=== PATIENT | female | born 1945 | race Caucasian/White ===

== ENCOUNTER 2018-07-29 10:27 | Inpatient (IN) ==
--- NOTE | 2018-07-29 11:56 | Emergency Department Note ---
Disposition Clinical Impression: Chest pain Qualifiers: Chest pain type: unspecified Qualified Code(s): R07.9 - Chest pain, unspecified Disposition: Admitted As Inpatient Condition: Fair Referrals: Lisa Emmanuel CNP [Primary Care Provider] - Forms: ED Satisfaction Letter, Work/School Release General Adult HPI - General Chief complaint: ED Abdominal Pain Stated complaint: pain from surgery Time Seen by Provider: 07/29/18 10:59 Source: patient, family Mode of arrival: ambulatory Limitations: no limitations Nursing Notes Reviewed: Yes Vital Signs Reviewed: Yes - History of Present Illness HPI Narrative: Pt is a 72 F that had AAA open repair with bypass on 06/28/18 with ten day SNF stay afterward for rehab and PMH of DM, COPD, HTN that presents today with complaints of chest pain, leg pain, leg weakness, abdominal pain, dry cough. Her main concern today is the chest pain that started three days ago and felt like pressure, lasted about thirty minutes, was accompanied by nausea, and went away on its own. She has a home health aide that sees her and recommended that she come in to be evaluated today. She endorses feeling hot and cold at times, urinary frequency, shortness of breath, anorexia, left leg pain/swelling. She denies nausea not associated with chest pain, vomiting, diarrhea, headache, changes in vision, hemoptysis. Onset (ago): day(s) Location: chest, abdomen, left, lower extremity Radiation: non-radiation Pain Scale: 6 Quality: dull, other (pressure) - Related Data Home Medications Medication Instructions Recorded Confirmed Aspirin [Lo-Dose Aspirin EC] 81 mg PO DAILY 04/29/17 07/29/18 Celecoxib [Celebrex] 200 mg PO DAILY 04/29/17 07/29/18 Insulin ASPART [Novolog Flexpen] 4 unit SQ TIDWM 04/29/17 07/29/18 Ipratropium/Albuterol Sulfate 1 puff IH QID 04/29/17 07/29/18 [Combivent Respimat Inhal [place]] Levalbuterol [Xopenex INH] 1 puff IH TID PRN 04/29/17 07/29/18 Lidocaine Patch [Lidoderm 5% patch] 1 each TP DAILY 04/29/17 07/29/18 Metoprolol Tartrate [Lopressor] 25 mg PO BID 04/29/17 07/29/18 [place]-3S/Dha/Epa/Fish Oil [Fish 1 each PO DAILY 04/29/17 07/29/18 Oil [place]-3 Softgel] Omeprazole [PriLOSEC] 40 mg PO BID 04/29/17 07/29/18 Rotigotine [Neupro] 1 patch TD DAILY 04/29/17 07/29/18 Trazodone HCl 50 mg PO HS 04/29/17 07/29/18 diazePAM [Valium] 10 mg PO BID 04/29/17 07/29/18 Atorvastatin [Lipitor] 40 mg PO HS 03/24/18 07/29/18 Fluticasone/Salmeterol [Advair 1 each IH DAILY 03/24/18 07/29/18 500-50 Diskus] Lisinopril [Zestril] 10 mg PO DAILY 03/24/18 07/29/18 Naproxen Sodium [All Day Pain 220 mg PO TID PRN 03/24/18 07/29/18 Relief] Amoxicillin [Amoxil] 500 mg PO TID 07/29/18 07/29/18 HYDROcodone/Acet 5/325 mg [[place] 1 tab PO DAILY PRN 07/29/18 07/29/18 5-325 mg] Labetalol HCl 200 mg PO DAILY 07/29/18 07/29/18 Previous Rx's Medication Instructions Recorded Clopidogrel [Plavix] 75 mg PO DAILY #30 tablet 04/30/17 Allergies Allergy/AdvReac Type Severity Reaction Status Date / Time albuterol AdvReac Chest Pain Verified 07/29/18 10:42 ciprofloxacin [From Cipro] AdvReac Vomiting Verified 07/29/18 10:42 doxycycline AdvReac Nausea Verified 07/29/18 10:42 pregabalin [From Lyrica] AdvReac Fatigued Verified 07/29/18 10:42 All systems ED: reviewed and negative except as stated. Review of Systems: As Per HPI Past Medical History - Past Medical History Medical history: Reports: COPD, coronary artery disease, diabetes, fibromyalgia , hyperlipidemia, hypertension Surgical history: Reports: angioplasty/stent, coronary bypass (CABG) Psychiatric history: Reports: anxiety DANCING MASTER history: Reports: no DANCING MASTER history - Social History Smoking Status: Current every day smoker Smokeless Tobacco Status: No Alcohol use: Reports: occasionally Drug use: Reports: none Physical Exam - General Limitations: no limitations General appearance: alert, in no apparent distress - Head Head exam: atraumatic - Eye Eye exam: Present: normal appearance, miosis - ENT ENT exam: mucous membranes dry - Chest Chest inspection: Present: normal inspection, symmetric chest wall rise. Absent : tenderness, rash - Respiratory Respiratory exam: Present: other (course breath sounds EUGENE, rales in LLL). Absent: wheezes - Cardiovascular Cardiovascular exam: Present: regular rate, normal rhythm, systolic murmur - Abdominal Exam Abdominal exam: Present: soft, tenderness, normal bowel sounds, incision ( midline incision without erythema, drainage. Closed with steri-strips above umbilicus, surgical cullen below the umbilicus, with incomplete closure in suprapubic area). Absent: distention, guarding, rigidity - Expanded Lower Extremity Exam Lower leg exam: Present: tenderness (left leg), swelling (left leg), erythema ( left leg) - Back Exam Back exam: Present: normal inspection. Absent: tenderness, rashes - Neurological Exam Neurological exam: Present: alert, oriented X3 - Psychiatric Psychiatric exam: Present: normal affect, normal mood - Skin Skin exam: Present: warm, dry, intact. Absent: rash, cyanosis, diaphoresis Course Course Narrative: Pt had an episode of chest pain three days ago that lasted approximately 30m and was not brought on by exertion. She has multiple risk factors for ACS, recent surgery for AAA repair without resolution of pain, and continued concern for left lower leg DVT. She will likely need to be admitted for ACS r/o. Vital Signs Temperature 97.9 F 07/29/18 10:34 Pulse Rate 63 07/29/18 10:34 Respiratory Rate 20 07/29/18 10:34 Blood Pressure 167/89 07/29/18 10:34 O2 Sat by Pulse Oximetry 92 07/29/18 10:34 Temperature 97.9 F 07/29/18 14:00 Pulse Rate 66 07/29/18 14:00 Respiratory Rate 17 07/29/18 14:00 Blood Pressure 173/60 07/29/18 14:00 O2 Sat by Pulse Oximetry 96 07/29/18 14:00 Oxygen Delivery Oxygen Delivery Room Air Medical Decision Making - Medical Records Medical records reviewed: Yes I reviewed the patient's medical records. - Lab Data Lab results reviewed: Yes I reviewed the patient's lab results. Result diagrams: 07/29/18 11:41 07/29/18 11:41 Lab Results 07/29/18 07/29/18 07/29/18 Range/Units 11:41 11:41 11:41 WBC 4.9 (4.3-11.1) K/mcL RBC 3.28 L (3.82-4.97) M/mcL Hgb 8.7 L (11.5-15.4) g/dL Hct 28.3 L (35.3-44.9) % MCV 86.3 (83.0-100.0) fL MCH 26.5 L (28.0-33.3) pg MCHC 30.7 L (31.6-35.5) g/dL RDW 15.6 H (11.5-14.5) % Plt Count 207 (140-400) K/mcL MPV 8.5 L (9.4-12.4) fL Immature Gran % 0.4 (0-4) % Seg Neutrophils % 66.5 % Lymphocytes % 20.7 % Monocytes % 7.1 % Eosinophils % 5.3 % Basophils % 0.0 % Neutrophils # 3.3 (1.6-8.9) K/mcL Lymphocytes # 1.0 (0.6-4.6) K/mcL Monocytes # 0.4 (0.0-1.3) K/mcL Eosinophils # 0.3 (0.0-0.6) K/mcL Basophils # 0.0 (0.0-0.2) K/mcL PT 13.0 H (9.4-12.1) Seconds INR 1.2 D-Dimer 1685 H (0-500) ng/mLFEU Sodium 136 (136-145) mEq/L Potassium 4.2 (3.5-5.1) mEq/L Chloride 99 (98-107) mEq/L Carbon Dioxide 29 (23-29) mEq/L BUN 10 (8-23) mg/dL Creatinine 0.72 (0.60-1.20) mg/dL Est GFR ( Amer) > 60 (> 60) Est GFR (Non-Af Amer) > 60 (> 60) BUN/Creatinine Ratio 14 (6-26) Glucose 290 H (70-105) mg/dL Calculated Osmolality 292 (280-300) Calcium 8.5 L (8.6-10.3) mg/dL Troponin I 0.04 H* (< 0.04) ng/mL B-Natriuretic Peptide (Less than 100) pg/mL Stool Occult Bld Scrn (Negative) 07/29/18 07/29/18 Range/Units 11:41 15:04 WBC (4.3-11.1) K/mcL RBC (3.82-4.97) M/mcL Hgb (11.5-15.4) g/dL Hct (35.3-44.9) % MCV (83.0-100.0) fL MCH (28.0-33.3) pg MCHC (31.6-35.5) g/dL RDW (11.5-14.5) % Plt Count (140-400) K/mcL MPV (9.4-12.4) fL Immature Gran % (0-4) % Seg Neutrophils % % Lymphocytes % % Monocytes % % Eosinophils % % Basophils % % Neutrophils # (1.6-8.9) K/mcL Lymphocytes # (0.6-4.6) K/mcL Monocytes # (0.0-1.3) K/mcL Eosinophils # (0.0-0.6) K/mcL Basophils # (0.0-0.2) K/mcL PT (9.4-12.1) Seconds INR D-Dimer (0-500) ng/mLFEU Sodium (136-145) mEq/L Potassium (3.5-5.1) mEq/L Chloride (98-107) mEq/L Carbon Dioxide (23-29) mEq/L BUN (8-23) mg/dL Creatinine (0.60-1.20) mg/dL Est GFR ( Amer) (> 60) Est GFR (Non-Af Amer) (> 60) BUN/Creatinine Ratio (6-26) Glucose (70-105) mg/dL Calculated Osmolality (280-300) Calcium (8.6-10.3) mg/dL Troponin I (< 0.04) ng/mL B-Natriuretic Peptide 618 H (Less than 100) pg/mL Stool Occult Bld Scrn Negative (Negative) - Radiology Data Radiology results reviewed: Yes I reviewed the patient's radiology results. - EKG Data EKG #1 EKG attestation: Yes I reviewed and interpreted this EKG. EKG results narrative: Vent Rate 63, Rhythm is sinus, axis is normal. No evidence of ST elevation or depression, no evidence of ischemia. Attestation Statement - Attestation Attestation: I, Kit Thompson, examined this patient and my medical decision-making was reviewed with the MARRIAGE THERAPIST/PA/Advanced Practice Nurse/Resident Physician. I agree with the documented findings, disposition and treatment plan as described except to the extent set forth below. 72-year-old female presents emergency Department with multiple complaints. Patient states her main concern was acute onset of chest pain within the past 2 days that came on quickly, was associated with shortness of breath and nausea. She did not syncopized. Patient was counseled to present to the emergency department for further evaluation by [facility] health aide. Patient had recent AAA repair and has a large incision on her anterior abdomen. She has had persistent abdominal pain since that time. Patient states the abdominal pain has not significantly worsened within the past 2-3 days however the pain is described as severe. Patient has also had left lower extremity swelling which had a left lower extremity Doppler performed 2 weeks ago that did not show left lower extremity DVT however she has had increased swelling of left lower extremity since that ultrasound. Repeat ultrasound emergency department did not show evidence of DVT. D-dimer was elevated. Patient had elevated troponin of 0.04. Hemoglobin was significantly decreased compared to her previous laboratory values. We will obtain rectal exam for possible occult blood in stool. BNP elevated with vascular congestion on chest x-ray.CTA pending of the chest to rule out PE, we also added CT of the abdomen and pelvis to further evaluate her abdominal pain after the surgery. Patient will likely be admitted to the hospital however disposition is pending at this time.
[2018-07-29 12:01] LABS: Eosinophils # 0.3 K/mcL (0.0-0.6); Eosinophils % 5.3 %; Hematocrit 28.3 % (35.3-44.9); Hemoglobin 8.7 g/dL (11.5-15.4); Immature Granulocytes % 0.4 % (0-4); Lymphocytes % 20.7 %; Mean Corpuscular HGB Conc 30.7 g/dL (31.6-35.5); Mean Corpuscular Hemoglobin 26.5 pg (28.0-33.3); Mean Corpuscular Volume 86.3 fL (83.0-100.0); Mean Platelet Volume 8.5 fL (9.4-12.4); Monocytes # 0.4 K/mcL (0.0-1.3); Monocytes % 7.1 %; Neutrophils # 3.3 K/mcL (1.6-8.9); Platelet Count 207 K/mcL (140-400); Red Blood Count 3.28 M/mcL (3.82-4.97); Red Cell Distribution Width 15.6 % (11.5-14.5); Segmented Neutrophils % 66.5 %
[2018-07-29 12:07] LABS: INR 1.2
[2018-07-29 12:21] LABS: Troponin I 0.04 ng/mL (< 0.04)
[2018-07-29] MEDS ORDERED: Isovue-370 500 ML INFUS..BTL IV ONE (12:45)
[2018-07-29 12:52] LABS: BUN/Creatinine Ratio 14 (6-26); Blood Urea Nitrogen 10 mg/dL (8-23); Calcium 8.5 mg/dL (8.6-10.3); Carbon Dioxide 29 mEq/L (23-29); Chloride 99 mEq/L (98-107); Glucose 290 mg/dL (70-105); Osmolality,Calculated 292 (280-300); Potassium 4.2 mEq/L (3.5-5.1); Sodium 136 mEq/L (136-145); eGFR For Non-African Americans > 60 (> 60)
[2018-07-29] MEDS ORDERED: *HR* OxyCODONE Immed Rel 5 MG TABLET PO ONE (15:26)
[2018-07-29] MEDS ORDERED: Levalbuterol 1 PUFF INHALER IH PRN (15:52)
[2018-07-29] MEDS ORDERED: Naloxone 0.4 MG/ML INJ IVP PRN (16:25)
[2018-07-29] MEDS ORDERED: Ondansetron 4 MG/2 ML VIAL IVP PRN (16:37)
[2018-07-29] MEDS ORDERED: Nitroglycerin 0.4 MG TAB.SUBL SL PRN (16:37)
[2018-07-29] MEDS ORDERED: Albuterol 2.5 MG/3 ML NEBULIZER IH PRN (16:44)
[2018-07-29] MEDS ORDERED: Ipratropium/Albuterol Neb 3 ML IH ONE (16:46)
[2018-07-29] MEDS ORDERED: Ipratropium/Albuterol Neb 3 ML ONE (16:52)
--- NOTE | 2018-07-29 16:57 | Internal Med History&Physical ---
Date of Encounter: 07/29/18 Time of Encounter: 16:50 Internal Medicine - H&P: HPI History of present illness: Ms. Gonzales is a 72 year old female with history of diastolic heart failure, CAD status-post CABG, recent AAA repair on 06/28/18 presented for a 3 day history of chest pain and abdominal pain. She was encouraged to come in by her home health aid. Patient accompanied with daughter. Per patient, chest pain is dull , substernal, and abdominal pain is described as sharp. She believes the abdominal pain is easily reproduced if she palpates it. Chest pain can last 30 min at a time and has subsided. She is having increasing shortness of breath and also increased swelling of her left lower extremity. She feels increased heezing as well. She denies fevers/chills, productive cough, diaphoresis, headaches. In the ED a chest x-ray showed vascular congestion. A CTA of chest showed multi -focal pneumonia and pleural effusion. A CTA abdomen and pelvis showed patient iliac artery bypass grafts, inguinal seromas. A BNP was elevated at 618. Patient's recent AAA surgery was at an outside hospital. She had a borderline elevated troponin of 0.04. A hemoglobin was low at 8.7. At our facility on 01/19, hemoglobin was 13.6 as a baseline. A FOBT was negative in ED. Outside records are pending. Past Med Surg Social Fam HX - Past Medical History Medical history: COPD, coronary artery disease, diabetes, fibromyalgia, hyperlipidemia, hypertension Additional medical history: thyroid mass, carotid disease, multiple stents Psychiatric history: anxiety - Past Surgical History Surgical History: angioplasty/stent, coronary bypass (CABG) - Social History Smoking Status: Current every day smoker Smokeless Tobacco Status: No Alcohol use: occasionally Drug use: none - Family History Father Family Member Ethnicity: Non- Living Status: Hx Family Cardiac Disorders: Yes Internal Medicine - H&P: Meds Aspirin [Lo-Dose Aspirin EC] 81 mg PO DAILY 04/29/17 [History] Celecoxib [Celebrex] 200 mg PO DAILY 04/29/17 [History] Insulin ASPART [Novolog Flexpen] 4 unit SQ TIDWM 04/29/17 [History] Ipratropium/Albuterol Sulfate [Combivent Respimat Inhal [place]] 1 puff IH QID [History] Levalbuterol [Xopenex INH] 1 puff IH TID PRN 04/29/17 [History] Lidocaine Patch [Lidoderm 5% patch] 1 each TP DAILY 04/29/17 [History] Metoprolol Tartrate [Lopressor] 25 mg PO BID 04/29/17 [History] [place]-3S/Dha/Epa/Fish Oil [Fish Oil [place]-3 Softgel] 1 each PO DAILY 04/29/17 [ History] Omeprazole [PriLOSEC] 40 mg PO BID 04/29/17 [History] Rotigotine [Neupro] 1 patch TD DAILY 04/29/17 [History] Trazodone HCl 50 mg PO HS 04/29/17 [History] diazePAM [Valium] 10 mg PO BID 04/29/17 [History] Clopidogrel [Plavix] 75 mg PO DAILY #30 tablet 04/30/17 [Rx] Atorvastatin [Lipitor] 40 mg PO HS 03/24/18 [History] Fluticasone/Salmeterol [Advair 500-50 Diskus] 1 each IH DAILY 03/24/18 [History] Lisinopril [Zestril] 10 mg PO DAILY 03/24/18 [History] Naproxen Sodium [All Day Pain Relief] 220 mg PO TID PRN 03/24/18 [History] Amoxicillin [Amoxil] 500 mg PO TID 07/29/18 [History] HYDROcodone/Acet 5/325 mg [[place] 5-325 mg] 1 tab PO DAILY PRN 07/29/18 [History] Labetalol HCl 200 mg PO DAILY 07/29/18 [History] 3 Allergy/AdvReac Type Severity Reaction Status Date / Time albuterol AdvReac Chest Pain Verified 07/29/18 10:42 ciprofloxacin [From Cipro] AdvReac Vomiting Verified 07/29/18 10:42 doxycycline AdvReac Nausea Verified 07/29/18 10:42 pregabalin [From Lyrica] AdvReac Fatigued Verified 07/29/18 10:42 All Systems PM: A 10-system review of systems was performed and is negative for pertinent findings except as documented above in the HPI. Review of systems: As per HPI - Constitutional Vitals: Temp Pulse Resp BP Pulse Ox 97.9 F 70 17 192/72 95 07/29/18 14:00 07/29/18 15:28 07/29/18 14:00 07/29/18 15:28 07/29/18 15:28 Exam: Gen: No acute distress, AAO x3, cooperative with exam CVS: RRR, no mrg Lungs: Course breath sounds, fair air exchange, scattered exp wheezing and rales. Abd: Soft, +TTP diffuse, normal bowel sounds, no guarding, no rigidity. Incision c/d well healing Ext: left lower extremity with 2+ pitting edema. Right lower extremity unremarkable. Tibial Pulses 2+ bilaterally. Internal Med - H&P Results - Labs CBC & Chem 7: 07/29/18 11:41 07/29/18 11:41 - Assessment and plan (1) Chest pain Current Visit: Yes Status: Acute Assessment and plan: Possibly related to heart failure, multifocal pneumonia, COPD. Will need to rule out ACS. Will consult Cardiology. Notify of consult in AM since currently after hours Cycle troponin, continue to monitor on telemetry. Continue Plavix, but hold aspirin until hemoglobin is trended. Treat HF exac with Lasix and fluid restriction, will need to treat for hospital acquired pneumonia due to recent hospitalization, give Steroids and neb therapy for COPD exacerbation. Qualifiers: Chest pain type: unspecified Qualified Code(s): R07.9 - Chest pain, unspecified (2) Acute decompensated heart failure Current Visit: Yes Status: Acute Assessment and plan: Known history of diastolic heart failure. Has some peripheral edema, though it is most notable on left lower extremity and not as bilateral. BNP is elevated. No JVD on exam. Lung exam limited from loud wheezing, but rales are appreciated. CXR shows edema and pleural effusion. Start Lasix 20 mg IV BID with close monitoring of renal function Fluid restriction diet monitor I/Os Elevate HOB >45 degrees. (3) COPD exacerbation Current Visit: Yes Status: Acute Assessment and plan: Start ipratroprium and Xopenex scheduled Solu medrol Workup and treatment of pneumonia. (4) Hypertension Current Visit: Yes Status: Acute Assessment and plan: Resume home medications. Currently takes Labetalol and metoprolol. Two beta blockers on med rec, will review records, will restart now. Also on lisinopril. Add IV Hydralazine prn. Qualifiers: Hypertension type: essential hypertension Qualified Code(s): I10 - Essential (primary) hypertension (5) Diabetes Current Visit: Yes Status: Acute Assessment and plan: Diabetic diet, sliding scale. Qualifiers: Diabetes mellitus type: type 2 Diabetes mellitus senior care insulin use: unspecified senior care insulin use status Diabetes mellitus complication status : with unspecified complications Qualified Code(s): E11.8 - Type 2 diabetes mellitus with unspecified complications (6) Multifocal pneumonia Current Visit: Yes Status: Acute Assessment and plan: Will need to cover for HAP since patient recently hospitalized and at SNF Start with Cefepime and Vancomycin. If MRSA screen negative, then discontinue Vanc. Will de escalate Follow-up procalcitonin, if negative, will discontinue antibiotics. (7) Anemia Current Visit: Yes Status: Acute Assessment and plan: Unsure of when acute drop occurred. She had surgery one month ago on 06/28/18. Will need to review labs at those times. Repeat H&H at 18:00 today and then tomorrow AM. Will need close monitoring. For now, hold aspirin, but will resume Plavix because of her significant cardiac history. Will have better idea by tomorrow if aspirin can be restarted based on outside hospital labs and trending here. Resume home Prilosec. If concerns for GIB, will consult GI. If hemoglobin decreases, then stop SQ heparin and switch to EPCD for dvt prophylaxis. Will also obtain iron studies. Qualifiers: Anemia type: unspecified type Qualified Code(s): D64.9 - Anemia, unspecified (8) CAD (coronary artery disease) Current Visit: No Status: Acute Assessment and plan: Continue Plavix, hold aspirin for now. If there does not appear to be active GI bleed when trending H&H, then will need to resume aspirin due to significant cardiac history. Qualifiers: Coronary Disease-Associated Artery/Lesion type: bypass graft [place] vs. transplanted heart: [place] heart Associated angina: without angina Qualified Code(s): I25.810 - Atherosclerosis of coronary artery bypass graft(s) without angina pectoris (9) COPD (chronic obstructive pulmonary disease) Current Visit: No Status: Chronic Qualifiers: COPD type: unspecified COPD Qualified Code(s): J44.9 - Chronic obstructive pulmonary disease, unspecified - Time Spent With Patient Total time spent is greater than 50% in coordination of care (as documented) at patient's floor/unit and/or counseling patient:
[2018-07-29 18:02] LABS: Hemoglobin 9.3 g/dL (11.5-15.4)
[2018-07-29 18:24] LABS: Albumin 3.3 g/dL (3.5-5.7); Bilirubin,Direct 0.3 mg/dL (0.0-0.2); Bilirubin,Indirect 0.5 mg/dL (0.0-1.2); Bilirubin,Total 0.8 mg/dL (0.3-1.0); Globulin 3.3 g/dL (2.4-3.5); Total Protein 6.6 g/dL (6.4-8.9)
[2018-07-29] MEDS: Insulin LISPRO 300 UNITS/3 ML VIAL SQ SCH ×2 (19:05→21:43)
[2018-07-29] MEDS: Cefepime HCl 2,000 MG in Water for inj. (sterile) 20 ML 20 ML IVP SCH (19:20)
[2018-07-29] MEDS: MethylPREDNISolone 40 MG/ML VIAL IVP SCH (19:20)
[2018-07-29] MEDS: *HR* Heparin 5,000 UNIT/ML VIAL SQ SCH (19:20)
[2018-07-29] MEDS: Furosemide 20 MG/2 ML VIAL IVP SCH (20:09)
[2018-07-29] MEDS: traZODone 50 MG TABLET PO SCH (20:09)
[2018-07-29] MEDS: diazePAM 10 MG TABLET PO SCH (20:09)
[2018-07-29] MEDS ORDERED: Insulin DETEMIR 100 UNIT/ML X5UNITS SQ SCH (21:00)
[2018-07-29] MEDS: Ipratropium Neb 0.5 MG NEBULIZER IH SCH (21:39)
[2018-07-29] MEDS: Levalbuterol Neb 1.25 MG/3 ML IH SCH (21:39)
[2018-07-30] MEDS ORDERED: MethylPREDNISolone 40 MG/ML VIAL IVP SCH
[2018-07-30] MEDS: Cefepime HCl 2,000 MG in Water for inj. (sterile) 20 ML 20 ML IVP SCH ×3 (00:17→20:35)
[2018-07-30] MEDS: MethylPREDNISolone 40 MG/ML VIAL IVP SCH ×4 (00:17→23:20)
[2018-07-30 00:51] LABS: Bilirubin,Urine Negative (Negative); Blood,Urine Negative (Negative); Clarity,Urine Clear (Clear); Color,Urine Yellow (Yellow); Glucose,Urine (UA) 100 mg/dL (Normal); Ketones,Urine Negative (Negative); Leukocyte Esterase,Urine Negative (Negative); Nitrite,Urine Negative (Negative); PH,Urine 6.5 pH Units (5.0-8.0); Protein,Urine Negative (Neg-Trace); Specific Gravity,Urine 1.008 (1.010-1.025); Urobilinogen,Urine Normal (Normal)
[2018-07-30] MEDS: Levalbuterol Neb 1.25 MG/3 ML IH SCH ×4 (04:40→20:43)
[2018-07-30] MEDS: Ipratropium Neb 0.5 MG NEBULIZER IH SCH ×4 (04:40→20:43)
[2018-07-30] MEDS: *HR* Heparin 5,000 UNIT/ML VIAL SQ SCH ×2 (05:25→17:34)
[2018-07-30 05:32] LABS: Hematocrit 27.4 % (35.3-44.9); Hemoglobin 8.3 g/dL (11.5-15.4); Immature Granulocytes % 0.3 % (0-4); Lymphocytes # 0.3 K/mcL (0.6-4.6); Lymphocytes % 10.6 %; Mean Corpuscular HGB Conc 30.3 g/dL (31.6-35.5); Mean Corpuscular Hemoglobin 25.5 pg (28.0-33.3); Mean Platelet Volume 9.1 fL (9.4-12.4); Neutrophils # 2.7 K/mcL (1.6-8.9); Platelet Count 241 K/mcL (140-400); Red Blood Count 3.26 M/mcL (3.82-4.97); Red Cell Distribution Width 15.3 % (11.5-14.5); Segmented Neutrophils % 88.1 %
[2018-07-30 05:56] LABS: BUN/Creatinine Ratio 15 (6-26); Blood Urea Nitrogen 12 mg/dL (8-23); Calcium 8.8 mg/dL (8.6-10.3); Carbon Dioxide 28 mEq/L (23-29); Chloride 98 mEq/L (98-107); Glucose 398 mg/dL (70-105); Magnesium 1.7 mg/dL (1.6-2.6); Osmolality,Calculated 298 (280-300); Phosphorous 4.2 mg/dL (2.7-4.5); Potassium 4.6 mEq/L (3.5-5.1); Sodium 136 mEq/L (136-145); eGFR For Non-African Americans > 60 (> 60)
[2018-07-30 07:01] LABS: Platelet Estimate Normal (Normal)
[2018-07-30] MEDS: Insulin LISPRO 300 UNITS/3 ML VIAL SQ SCH ×4 (07:01→20:35)
[2018-07-30] MEDS: Rotigotine [Neupro] 1 PATCH TP SCH (07:39)
[2018-07-30] MEDS: Furosemide 20 MG/2 ML VIAL IVP SCH ×2 (07:46→16:38)
[2018-07-30] MEDS: diazePAM 10 MG TABLET PO SCH ×2 (07:47→20:34)
[2018-07-30] MEDS: *HR* HYDROcodone/Acet 5/325 mg TABLET PO PRN ×2 (07:50→16:38)
[2018-07-30] MEDS ORDERED: Insulin DETEMIR 100 UNIT/ML X5UNITS SQ ONE (08:01)
[2018-07-30] MEDS ORDERED: Insulin Regular, Human 100 UNIT/ML SQ ONE (08:02)
[2018-07-30] MEDS ORDERED: Insulin LISPRO 300 UNITS/3 ML VIAL SQ ONE ×2 (08:15→14:44)
[2018-07-30] MEDS ORDERED: NON-FORMULARY MEDICATION 1 EACH EACH (Omega-3s/Dha/Epa/Fish Oil [Fish Oil Omega-3 Softgel] PO SCH (09:00)
[2018-07-30] MEDS: Budesonide/Formoterol 160/4.5 1 PUFF INH IH SCH ×2 (10:37→20:44)
--- NOTE | 2018-07-30 11:01 | Cardiology Consult Note ---
Addendum entered and electronically signed by Alfredo Wynne CNP 07/30/18 11:34: Hypertensive. Will increase Lisinopril from 10mg daily to 20mg daily. Original Note: <Alfredo Wynne - Last Filed: 07/30/18 11:08> Date of Encounter: 07/30/18 Time of Encounter: 10:56 Assessment and Plan (1) Chest pain Current Visit: Yes Status: Acute Consulted for chest pain. On discussion with pt pain is abdominal--right upper quadrant with radiation to epigastric region. No actual chest pain. Reports pain has been constant since AAA repair--suspect noncardiac. Mild improvement with pain meds. Different than prior anginal equivalent. EKG no acute changes. Borderline troponin 0.04 x 2. Check TTE to re-evaluate EF. Qualifiers: Chest pain type: unspecified Qualified Code(s): R07.9 - Chest pain, unspecified (2) Acute exacerbation of CHF (congestive heart failure) Current Visit: Yes Status: Acute Documented hx of diastolic CHF. TTE 02/2018 EF preserved. Post op AAA repair 06/28/18. Presents with ABD pain, LE edema. Reports chronic dyspnea. BNP 618. CXR vascular congestion. Repeat TTE to evaluate EF--systolic vs diastolic CHF exacerbation. Agree with IV lasix 20mg BID. Recommend strict I/Os, Na and fluid restriction, daily weights. Qualifiers: Heart failure type: unspecified Qualified Code(s): I50.9 - Heart failure, unspecified (3) CAD (coronary artery disease) Current Visit: No Status: Acute Known CAD hx with CABG and PCI--most recent [facility] 03/2018 with BMS to mLCx. 2/3 patent bypass grafts with LAMAS-LAD and SVG-PDA. Continue Plavix, Statin, BB. Qualifiers: Coronary Disease-Associated Artery/Lesion type: bypass graft [place] vs. transplanted heart: [place] heart Associated angina: without angina Qualified Code(s): I25.810 - Atherosclerosis of coronary artery bypass graft(s) without angina pectoris (4) Anemia Current Visit: Yes Status: Acute Post op AAA repair at [facility] [place] 06/28/18. HGB previously ~13 range, currently 8.3. FOBT negative. Management per primary team. Qualifiers: Anemia type: unspecified type Qualified Code(s): D64.9 - Anemia, unspecified (5) Elevated troponin Current Visit: Yes Status: Acute Borderline troponin 0.04 x 2 in setting of CHF exacerbation, PNA, COPD, acute anemia. Demand ischemia, nondiagnostic for ACS. TTE to evaluate EF. EKG no ischemic changes. Discussion w patient/family: The assessment and plan as outlined above was discussed with the patient and/or family members who expressed understanding and agreement. All questions were answered. Thank you for involving us in the care of your patient. Please call with any questions. I will discuss all the above with Dr. Casanova and make changes as necessary. History of Present Illness Consult date: 07/30/18 Requesting physician: Simba Evans Consult reason: elevated troponin Chief complaint: chest pain History of present illness: Ms. Gonzales is a 72 year old female with history of diastolic heart failure, CAD s/p CABG and PCI 03/2018, recent AAA repair on 06/28/18 presented for chest pain and abdominal pain. She was encouraged to come in by her home health aid. Per pt , pain has been near constant since her AAA repair. Described as right sided radiating to epigastric region. She does not detail actual chest pain to me and states this is different than prior anginal equivalent. CXR showed vascular congestion. A CTA of chest showed multi-focal pneumonia and pleural effusion. A CTA abdomen and pelvis showed patient iliac artery bypass grafts, inguinal seromas. A BNP was elevated at 618. Patient's recent AAA surgery was at [facility] [place]. Troponin 0.04 x 2. HGB 8.3. In June baseline HGB was ~13. FOBT negative. Cardiology consulted for further recs. Pt states she has chronic dyspnea, no significant worsening from baseline. Reports increased LE edema. Prior CV testing: [facility] 03/24/18: There is severe three vessel coronary artery disease. The left ventricle EF 55%. Patient had successful PTCA/Bare Metal Stent placement in the mid Circ. S/P CABG 2 of 3 patent bypass grafts with LAMAS LAD and SVG PDA patent. TTE 02/26/18: LVEF 55-60%. Normal LV chamber size and function. Mild concentric left ventricular hypertrophy. Pseudonormal left ventricular diastolic dysfunction. Atypical septal motion consistent with post-operative status. Normal right ventricular structure and function. No significant valvular dysfunction. Past Med Surg Social Fam HX - Past Medical History Medical history: COPD, coronary artery disease, diabetes, fibromyalgia, hyperlipidemia, hypertension Additional medical history: thyroid mass, carotid disease, multiple stents Psychiatric history: anxiety - Past Surgical History Surgical History: angioplasty/stent, coronary bypass (CABG) - Social History Smoking Status: Current every day smoker Smokeless Tobacco Status: No Alcohol use: occasionally Drug use: none - Family History Father Family Member Ethnicity: Non- Living Status: Hx Family Cardiac Disorders: Yes Medications and Allergies Aspirin [Lo-Dose Aspirin EC] 81 mg PO DAILY 04/29/17 [History] Celecoxib [Celebrex] 200 mg PO DAILY 04/29/17 [History] Insulin ASPART [Novolog Flexpen] 4 unit SQ TIDWM 04/29/17 [History] Ipratropium/Albuterol Sulfate [Combivent Respimat Inhal Arnold] 1 puff IH QID [History] Levalbuterol [Xopenex INH] 1 puff IH TID PRN 04/29/17 [History] Lidocaine Patch [Lidoderm 5% patch] 1 each TP DAILY 04/29/17 [History] Metoprolol Tartrate [Lopressor] 25 mg PO BID 04/29/17 [History] [place]-3S/Dha/Epa/Fish Oil [Fish Oil [place]-3 Softgel] 1 each PO DAILY 04/29/17 [ History] Omeprazole [PriLOSEC] 40 mg PO BID 04/29/17 [History] Rotigotine [Neupro] 1 patch TD DAILY 04/29/17 [History] Trazodone HCl 50 mg PO HS 04/29/17 [History] diazePAM [Valium] 10 mg PO BID 04/29/17 [History] Clopidogrel [Plavix] 75 mg PO DAILY #30 tablet 04/30/17 [Rx] Atorvastatin [Lipitor] 40 mg PO HS 03/24/18 [History] Fluticasone/Salmeterol [Advair 500-50 Diskus] 1 each IH DAILY 03/24/18 [History] Lisinopril [Zestril] 10 mg PO DAILY 03/24/18 [History] Naproxen Sodium [All Day Pain Relief] 220 mg PO TID PRN 03/24/18 [History] Amoxicillin [Amoxil] 500 mg PO TID 07/29/18 [History] HYDROcodone/Acet 5/325 mg [Thurman 5-325 mg] 1 tab PO DAILY PRN 07/29/18 [History] 3 Allergy/AdvReac Type Severity Reaction Status Date / Time albuterol AdvReac Chest Pain Verified 07/29/18 10:42 ciprofloxacin [From Cipro] AdvReac Vomiting Verified 07/29/18 10:42 doxycycline AdvReac Nausea Verified 07/29/18 10:42 pregabalin [From Lyrica] AdvReac Fatigued Verified 07/29/18 10:42 All Systems Review: The remainder of the systems were reviewed and are negative - Cardiovascular Cardiovascular: as per HPI, dyspnea at rest, dyspnea on exertion, leg edema - Respiratory Respiratory: dyspnea - Gastrointestinal Gastrointestinal: abdominal pain Physical Examination Vital Signs, Last 4 Hours Resp Pulse Ox 07/30/18 10:37 16 97 Vital Signs Temp Pulse Resp BP Pulse Ox 07/30/18 10:37 16 97 07/30/18 06:36 98.0 F 77 18 171/62 91 07/30/18 04:43 18 92 07/30/18 02:44 97.6 F 71 16 174/73 90 07/29/18 22:49 98.0 F 72 16 159/57 94 07/29/18 21:40 16 99 07/29/18 18:40 97.9 F 70 16 143/53 97 07/29/18 16:58 16 100 07/29/18 16:51 70 112/98 93 07/29/18 15:28 70 192/72 95 07/29/18 14:00 97.9 F 66 17 173/60 96 07/29/18 12:01 66 17 173/60 96 Intake and Output 07/29/18 07/30/18 07/30/18 23:59 07:59 15:59 Intake Total 130 / 130 20 / 20 Output Total 600 / 600 Balance 130 / 130 -580 / -580 Intake: IV Fluids 130 / 130 20 / 20 Maxipime 2,000 MG In Water for 20 / 20 20 / 20 inj. (sterile) 20 ML @ 300 mls/ hr IVP Q8HR [facility] Rx#:[id number] Calcium Gluconate 1,000 MG In 0 110 / 110 .9 % Sodium Chloride 100 ML @ 220 mls/hr IVPB ONCE ONE Rx#: [id number] Output: Urine 600 / 600 Other: # Voids 1 4 Weight 63.5 kg Blood Glucose* 333 435 Patient Weight 07/30/18 23:59 Weight 63.5 kg General: Conversant, No Apparent Distress HEENT: Atraumatic, Normocephaly, Mucus Membranes Moist Neck: Normal carotid pulses Cardiac: Reg Rate and Rhythm, Normal S1 and S2, No Murmur Lungs: Other (wheezes, rales) Neuro: Alert and responsive, No focal deficits noted Abdomen: Soft, Other (tenderness near incision sites) Skin: No rashes noted on visualized skin Musculoskeletal: No Chest Wall Tenderness Extremities: No Clubbing, No Cyanosis, No Edema, Normal Pulses Results 07/30/18 05:11 07/30/18 05:11 Lab Results 07/29/18 07/29/18 07/29/18 17:47 17:47 17:47 WBC Hgb 9.3 L Hct 30.0 L Plt Count Sodium Potassium Chloride Carbon Dioxide BUN Creatinine Glucose Calcium Magnesium Total Bilirubin 0.8 AST 10 L ALT 13 Alkaline Phosphatase 85 Troponin I 0.04 H* 07/30/18 07/30/18 05:11 05:11 WBC 3.1 L Hgb 8.3 L Hct 27.4 L Plt Count 241 Sodium 136 Potassium 4.6 Chloride 98 Carbon Dioxide 28 BUN 12 Creatinine 0.82 Glucose 398 H Calcium 8.8 Magnesium 1.7 Total Bilirubin AST ALT Alkaline Phosphatase Troponin I Short CBC 07/30/18 07/29/18 07/29/18 Range/Units 05:11 17:47 11:41 WBC 3.1 L 4.9 (4.3-11.1) K/mcL Hgb 8.3 L 9.3 L 8.7 L (11.5-15.4) g/dL Hct 27.4 L 30.0 L 28.3 L (35.3-44.9) % Plt Count 241 207 (140-400) K/mcL Neutrophils # 2.7 3.3 (1.6-8.9) K/mcL BMP 07/30/18 07/29/18 Range/Units 05:11 11:41 Sodium 136 136 (136-145) mEq/L Potassium 4.6 4.2 (3.5-5.1) mEq/L Chloride 98 99 (98-107) mEq/L Carbon Dioxide 28 29 (23-29) mEq/L BUN 12 10 (8-23) mg/dL Creatinine 0.82 0.72 (0.60-1.20) mg/dL Glucose 398 H 290 H (70-105) mg/dL Calcium 8.8 8.5 L (8.6-10.3) mg/dL Cardiac Enzymes 07/29/18 07/29/18 Range/Units 17:47 11:41 Troponin I 0.04 H* 0.04 H* (< 0.04) ng/mL Liver Function 07/29/18 Range/Units 17:47 Total Bilirubin 0.8 (0.3-1.0) mg/dL Direct Bilirubin 0.3 H (0.0-0.2) mg/dL AST 10 L (13-39) Units/L ALT 13 (7-52) Units/L Alkaline Phosphatase 85 (34-104) Units/L Albumin 3.3 L (3.5-5.7) g/dL Urine 07/30/18 Range/Units 00:35 Urine Color Yellow (Yellow) Urine Clarity Clear (Clear) Urine pH 6.5 (5.0-8.0) pH Units Ur Specific [place] 1.008 L (1.010-1.025) Urine Protein Negative (Neg-Trace) mg/dL Urine Glucose (UA) 100 H (Normal) mg/dL Impressions Chest X-Ray 07/29/18 11:39 IMPRESSION: Slightly increased interstitial opacities suggestive of edema. There is a probable small right pleural effusion. D/ / 07/29/2018 12:28:32 Diana Arceo MD / Iris Sanabria Interpreting Provider: Diana Arceo MD Abdomen/Pelvis CTA 07/29/18 12:45 IMPRESSION: 1. Status post bilateral iliac artery bypass grafting. The bypass grafts are patent. 2. Bladder wall thickening and hyperenhancement compatible with cystitis. 3. Bilateral inguinal low-attenuation collections likely postoperative seromas. There fluid in the left lateral hip/gluteal region which may represent seroma. No definite thick peripheral enhancement to suggest abscess. 4. Small left pleural effusion. Please refer to separate chest CTA report from earlier today for more details. D/ / 07/29/2018 15:14:21 Andrew Boyle MD / memoyer Interpreting Provider: Andrew Boyle MD Chest CTA 07/29/18 12:45 IMPRESSION: 1. No evidence of pulmonary embolism. 2. Patchy ground-glass opacities in both lungs raises concern for multifocal pneumonia. Follow-up chest radiographs recommended to ensure clearance after therapy. 3. Small left pleural effusion likely reactive in nature. 4. Centrilobular emphysema. 5. Atherosclerotic vascular calcifications noted with previous median sternotomy. D/ / Estevan Collado MD / Estevan Collado MD Interpreting Provider: Estevan Collado MD Active Medications Hydrocodone Bitart/Acetaminophen ([place] 5-325 Mg) 1 tab PO DAILY PRN PRN Reason: after therapy Stop: 01/28/19 15:53 Last Admin: 07/30/18 07:50 Dose: 1 tab Atorvastatin Calcium (Lipitor) 40 mg PO HS SANDRA Stop: 01/28/19 21:01 Last Admin: 07/29/18 20:09 Dose: 40 mg Budesonide/Formoterol Fumarate (Symbicort) 2 puff IH BIDR SANDRA Stop: 01/29/19 10:01 Last Admin: 07/30/18 10:37 Dose: 2 puff Clopidogrel Bisulfate (Plavix) 75 mg PO DAILY SANDRA Stop: 01/29/19 09:01 Last Admin: 07/30/18 07:46 Dose: 75 mg Diazepam (Valium) 10 mg PO BID SANDRA Stop: 01/28/19 21:01 Last Admin: 07/30/18 07:47 Dose: 10 mg Furosemide (Lasix) 20 mg IVP BIDDIURETIC SANDRA Stop: 07/31/18 08:01 Last Admin: 07/30/18 07:46 Dose: 20 mg Heparin Sodium (Porcine) (Heparin) 5,000 unit SQ Q12HCO SANDRA Stop: 01/28/19 18:01 Last Admin: 07/30/18 05:25 Dose: 5,000 unit Hydralazine HCl (Hydralazine) 10 mg IVP Q6HR PRN PRN Reason: SEE COMMENTS Stop: 01/28/19 16:47 Cefepime HCl 2,000 mg/ Sterile (Water) 20 mls @ 300 mls/hr IVP Q8HR [facility] Stop: 01/28/19 18:01 Last Admin: 07/30/18 07:45 Dose: 300 mls/hr Insulin Detemir (Levemir) 15 unit SQ HS [facility] Stop: 01/28/19 21:01 Last Admin: 07/29/18 21:43 Dose: 15 unit Insulin Human Lispro (Humalog) 0 units SQ HS SANDRA PRN Reason: Protocol Stop: 01/28/19 21:01 Last Admin: 07/29/18 21:43 Dose: 5 units Insulin Human Lispro (Humalog) 0 units SQ TIDWM [facility] PRN Reason: Protocol Stop: 01/28/19 17:01 Last Admin: 07/30/18 07:01 Dose: 14 units Ipratropium [place] (Atrovent Neb) 0.5 mg IH [id number] [facility] Stop: 01/28/19 22:01 Last Admin: 07/30/18 10:37 Dose: 0.5 mg Labetalol HCl (Trandate) 200 mg PO DAILY [facility] Stop: 01/29/19 09:01 Last Admin: 07/30/18 07:47 Dose: 200 mg Levalbuterol HCl (Xopenex) 1.25 mg IH [id number] [facility] Stop: 01/28/19 22:01 Last Admin: 07/30/18 10:37 Dose: 1.25 mg Lidocaine HCl (Lidoderm 5% Patch) 1 each TP DAILY [facility] Stop: 01/29/19 09:01 Last Admin: 07/30/18 07:46 Dose: 1 each Lisinopril (Zestril) 10 mg PO DAILY [facility] PRN Reason: Protocol Stop: 01/29/19 09:01 Last Admin: 07/30/18 07:47 Dose: 10 mg Methylprednisolone (Solu-Medrol) 40 mg IVP Q8HR [facility] Stop: 01/28/19 17:16 Last Admin: 07/30/18 07:46 Dose: 40 mg Metoprolol Tartrate (Lopressor) 25 mg PO BID ASNDRA Stop: 01/28/19 21:01 Naloxone HCl (Narcan) 0.4 mg IVP Q2MIN PRN PRN Reason: SEE COMMENTS Stop: 01/28/19 16:26 Nitroglycerin (Nitroglycerin) 0.4 mg SL Q5MIN PRN PRN Reason: Chest Pain Stop: 01/28/19 16:38 Omeprazole (Prilosec) 40 mg PO BIDAC SANDRA Stop: 01/28/19 16:31 Last Admin: 07/30/18 07:47 Dose: 40 mg Ondansetron HCl (Zofran) 4 mg IVP Q8HR PRN; Protocol PRN Reason: Nausea And Vomiting Stop: 01/28/19 16:38 Pharmacy Profile Note (Patient Taking Own Medication) 1 each TP DAILY SANDRA Stop: 01/29/19 09:01 Last Admin: 07/30/18 07:39 Dose: Not Given Trazodone HCl (Trazodone) 50 mg PO HS SANDRA Stop: 01/28/19 21:01 Last Admin: 07/29/18 20:09 Dose: 50 mg - Imaging and Cardiology Stress Test: report reviewed Echo: report reviewed Cardiac cath: report reviewed - EKG Interpretation EKG results cardiology: personally reviewed (SR, HR 101, prior inferior infarct. ) Consult Discharge Plan - Plan Referrals: Lisa Emmanuel, ORTHOPAEDIC TECHNOLOGIST [Primary Care Provider] - 08/18/18 10:45 am <Micki Collier - Last Filed: 07/31/18 11:05> Date of Encounter: 07/31/18 - Attending Attestation Patient was seen and evaluated independently by me. Findings, assessment and plan were discussed at length with patient, questions answered. Agree with nurse practitioner's documentation. Addition as follows, 72 yoCF ho CABG patent LAMAS-LAD, SVG-PDA, DMS-mLCx 03/2018, HFpEF, COPD, B/L iliac graft 06/2018, CVA, DM, HTN. P/w cough, pleuritic cp, LE edema. Consulted for mild trop elevation 0.04 w/o dynamic ECG change. Elevated BNP. Improved on steroid, lasix. vital stable, B/L scattered rhonchi, 3/6 SM USLB, LUE motor 4/5, no LE edema ( resolved) TTE preserved EF, LVH, mild and mild pulmonary HTN. TTE [id number] Impressions: LVEF 65%. Normal LV chamber size and systolic function. Mild left ventricular diastolic dysfunction. Mild concentric left ventricular hypertrophy. Mildly dilated right ventricle with mild right ventricular hypokinesis. Mildly dilated left atrium. Mild aortic stenosis. Mild tricuspid regurgitation. Likely mild pulmonary hypertension. CTA B/L seromas s/p iliac bypass A: HFpEF w ADHF likely 2/2 COPD exacerbation, now euvolemic mildly elevated troponin 2/2 ADHF not ACS, stable CAD,mild , mild pulmonary hypertesion P: - c/w diuresis I/O even - c/w home DAPT, statin, BB and ACEi - cardiology clinic f/u Micki Collier MD, PhD Assessment and Plan Discussion w patient/family: The assessment and plan as outlined above was discussed with the patient and/or family members who expressed understanding and agreement. All questions were answered. Thank you for involving us in the care of your patient. Please call with any questions. History of Present Illness History of present illness: Ms. Gonzales is a 72 year old female All Systems Review: The remainder of the systems were reviewed and are negative Results 07/31/18 05:27 07/31/18 05:27 Lab Results 07/30/18 07/31/18 07/31/18 12:41 05:27 05:27 WBC 8.2 D Hgb 8.6 L 8.1 L Hct 28.1 L 26.2 L Plt Count 243 Sodium 130 L Potassium 4.1 Chloride 92 L Carbon Dioxide 28 BUN 26 H Creatinine 0.82 Glucose 402 H Calcium 8.9
--- NOTE | 2018-07-30 12:24 | Internal Med Progress Note ---
Hospitalist Progress Note - Encounter Date of Encounter: 07/30/18 Time of Encounter: 12:44 - Subjective Interval History: No acute events. Patient states she does not feel better in terms of breathing. She does not want to be in the hospital though admits currently she is requiring O2 and IV Lasix. - Exam Vitals: Temp Pulse Resp BP Pulse Ox 98.1 F 67 17 186/71 98 07/30/18 11:59 07/30/18 11:59 07/30/18 11:59 07/30/18 11:59 07/30/18 11:59 Exam: Gen: No acute distress, AAO x3, cooperative with exam CVS: RRR, no mrg Lungs: Course breath sounds, fair air exchange, scattered exp wheezing and rales. Only slight improvement of wheezing since my exam yesterday. Abd: Soft, +TTP diffuse, normal bowel sounds, no guarding, no rigidity. Incision c/d well healing Ext: left lower extremity with 2+ pitting edema. Right lower extremity unremarkable. Tibial Pulses 2+ bilaterally. - Assessment and Plan (1) Chest pain Current Visit: Yes Status: Acute Assessment and Plan: Possibly related to heart failure, multifocal pneumonia, COPD. Will need to rule out ACS. Will consult Cardiology. Notify of consult in AM since currently after hours Cycle troponin, continue to monitor on telemetry. Continue Plavix, but hold aspirin until hemoglobin is trended. Treat HF exac with Lasix and fluid restriction, will need to treat for hospital acquired pneumonia due to recent hospitalization, give Steroids and neb therapy for COPD exacerbation. Cardiology consulted, recommendations appreciated. TTE pending. (2) Acute decompensated heart failure Current Visit: Yes Status: Acute Assessment and Plan: Known history of diastolic heart failure. Has some peripheral edema, though it is most notable on left lower extremity and not as bilateral. BNP is elevated. No JVD on exam. Lung exam limited from loud wheezing, but rales are appreciated. CXR shows edema and pleural effusion. Start Lasix 20 mg IV BID with close monitoring of renal function Fluid restriction diet monitor I/Os Elevate HOB >45 degrees. (3) COPD exacerbation Current Visit: Yes Status: Acute Assessment and Plan: Start ipratroprium and Xopenex scheduled Solu medrol Workup and treatment of pneumonia. Not able to lower dose of Solu Medrol today as she is still having resp distress. De escalate antibiotics as tolerated. (4) Hypertension Current Visit: Yes Status: Acute Assessment and Plan: Resume home medications. Currently takes Labetalol and metoprolol. Two beta blockers on med rec, will review records, will restart now. Also on lisinopril. Pharmacy has clarified that she takes metoprolol and NOT labetalol and so will resume that schedule. Lisinopril increased per Cardiology as patient is still hypertensive. Continue IV Hydralazine prn. (5) Diabetes Current Visit: Yes Status: Acute Assessment and Plan: Diabetic diet, sliding scale. Increase basal insulin due to steroids. (6) Multifocal pneumonia Current Visit: Yes Status: Acute Assessment and Plan: Will need to cover for HAP since patient recently hospitalized and at SNF MRSA screen negative, DC Vanc. Follow-up procalcitonin, if negative, will discontinue antibiotics. (7) Anemia Current Visit: Yes Status: Acute Assessment and Plan: Unsure of when acute drop occurred. She had surgery one month ago on 06/28/18. Will need to review labs at those times. Repeat H&H at 18:00 today and then tomorrow AM. Will need close monitoring. For now, hold aspirin, but will resume Plavix because of her significant cardiac history. Will have better idea by tomorrow if aspirin can be restarted based on outside hospital labs and trending here. Resume home Prilosec. If concerns for GIB, will consult GI. If hemoglobin decreases, then stop SQ heparin and switch to EPCD for dvt prophylaxis. H&H fluctuated will need repeat this afternoon. Iron studies shows ferritin 62, but serum iron low at 13. May benefit from iron supplementation. Again, will consider GI consultation as an inpatient or outpatient, will need to be more stable from respiratory standpoint first. (8) CAD (coronary artery disease) Current Visit: No Status: Acute Assessment and Plan: Continue Plavix, hold aspirin for now. If there does not appear to be active GI bleed when trending H&H, then will need to resume aspirin due to significant cardiac history. (9) COPD (chronic obstructive pulmonary disease) Current Visit: No Status: Chronic - Time Spent with Patient Total time spent is greater than 50% in coordination of care (as documented) at patient's floor/unit and/or counseling patient: Internal Medicine: Result - Labs CBC & Chem 7: 07/30/18 05:11 07/30/18 05:11 Labs: Short CBC 07/29/18 07/30/18 Range/Units 17:47 05:11 WBC 3.1 L (4.3-11.1) K/mcL Hgb 9.3 L 8.3 L (11.5-15.4) g/dL Hct 30.0 L 27.4 L (35.3-44.9) % Plt Count 241 (140-400) K/mcL Neutrophils # 2.7 (1.6-8.9) K/mcL BMP 07/30/18 05:11 Sodium 136 Potassium 4.6 Chloride 98 Carbon Dioxide 28 BUN 12 Creatinine 0.82 Glucose 398 H Calcium 8.8 Cardiac Enzymes 07/29/18 Range/Units 17:47 Troponin I 0.04 H* (< 0.04) ng/mL Liver Function 07/29/18 Range/Units 17:47 Total Bilirubin 0.8 (0.3-1.0) mg/dL Direct Bilirubin 0.3 H (0.0-0.2) mg/dL AST 10 L (13-39) Units/L ALT 13 (7-52) Units/L Alkaline Phosphatase 85 (34-104) Units/L Albumin 3.3 L (3.5-5.7) g/dL Urine 07/30/18 Range/Units 00:35 Urine Color Yellow (Yellow) Urine Clarity Clear (Clear) Urine pH 6.5 (5.0-8.0) pH Units Ur Specific [place] 1.008 L (1.010-1.025) Urine Protein Negative (Neg-Trace) mg/dL Urine Glucose (UA) 100 H (Normal) mg/dL - ABG Interpretation ABG results: PT/INR, D-dimer PT 13.0 Seconds (9.4-12.1) H 07/29/18 11:41 D-Dimer 1685 ng/mLFEU (0-500) H 07/29/18 11:41 Consult Discharge Plan - Plan Referrals: Lisa Emmanuel, MAINTENANCE TECH [Primary Care Provider] - 08/18/18 10:45 am (1) Chest pain Qualifiers: Chest pain type: unspecified Qualified Code(s): R07.9 - Chest pain, unspecified (4) Hypertension Qualifiers: Hypertension type: essential hypertension Qualified Code(s): I10 - Essential (primary) hypertension (5) Diabetes Qualifiers: Diabetes mellitus type: type 2 Diabetes mellitus care home insulin use: unspecified lobsterman insulin use status Diabetes mellitus complication status : with unspecified complications Qualified Code(s): E11.8 - Type 2 diabetes mellitus with unspecified complications (7) Anemia Qualifiers: Anemia type: unspecified type Qualified Code(s): D64.9 - Anemia, unspecified (8) CAD (coronary artery disease) Qualifiers: Coronary Disease-Associated Artery/Lesion type: bypass graft [place] vs. transplanted heart: [place] heart Associated angina: without angina Qualified Code(s): I25.810 - Atherosclerosis of coronary artery bypass graft(s) without angina pectoris (9) COPD (chronic obstructive pulmonary disease) Qualifiers: COPD type: unspecified COPD Qualified Code(s): J44.9 - Chronic obstructive pulmonary disease, unspecified
[2018-07-30 12:51] LABS: Hematocrit 28.1 % (35.3-44.9); Hemoglobin 8.6 g/dL (11.5-15.4)
[2018-07-30] MEDS: Nicotine 21 MG PATCH.TD24 TD SCH (15:24)
[2018-07-30] MEDS: traZODone 50 MG TABLET PO SCH (20:34)
[2018-07-30] MEDS: Insulin DETEMIR 100 UNIT/ML X5UNITS SQ SCH (20:34)
[2018-07-31] MEDS: Levalbuterol Neb 1.25 MG/3 ML IH SCH ×4 (03:48→22:01)
[2018-07-31] MEDS: Ipratropium Neb 0.5 MG NEBULIZER IH SCH ×4 (03:48→22:01)
[2018-07-31] MEDS: *HR* Heparin 5,000 UNIT/ML VIAL SQ SCH ×2 (05:38→16:39)
[2018-07-31 06:28] LABS: Basophils % 0.1 %; Hematocrit 26.2 % (35.3-44.9); Hemoglobin 8.1 g/dL (11.5-15.4); Immature Granulocytes % 0.6 % (0-4); Lymphocytes # 0.6 K/mcL (0.6-4.6); Lymphocytes % 7.1 %; Mean Corpuscular HGB Conc 30.9 g/dL (31.6-35.5); Mean Corpuscular Hemoglobin 25.8 pg (28.0-33.3); Mean Corpuscular Volume 83.4 fL (83.0-100.0); Mean Platelet Volume 9.2 fL (9.4-12.4); Monocytes # 0.2 K/mcL (0.0-1.3); Monocytes % 2.3 %; Platelet Count 243 K/mcL (140-400); Red Blood Count 3.14 M/mcL (3.82-4.97); Red Cell Distribution Width 15.6 % (11.5-14.5); Segmented Neutrophils % 89.9 %
[2018-07-31 06:31] LABS: Neutrophils # 7.4 K/mcL (1.6-8.9)
[2018-07-31 07:00] LABS: BUN/Creatinine Ratio 32 (6-26); Blood Urea Nitrogen 26 mg/dL (8-23); Calcium 8.9 mg/dL (8.6-10.3); Carbon Dioxide 28 mEq/L (23-29); Chloride 92 mEq/L (98-107); Glucose 402 mg/dL (70-105); Osmolality,Calculated 292 (280-300); Potassium 4.1 mEq/L (3.5-5.1); Sodium 130 mEq/L (136-145); eGFR For Non-African Americans > 60 (> 60)
[2018-07-31] MEDS: Nicotine 21 MG PATCH.TD24 TD SCH (08:20)
[2018-07-31] MEDS: Cefepime HCl 2,000 MG in Water for inj. (sterile) 20 ML 20 ML IVP SCH (08:22)
[2018-07-31] MEDS: MethylPREDNISolone 40 MG/ML VIAL IVP SCH ×2 (08:23→16:39)
[2018-07-31] MEDS: Insulin LISPRO 300 UNITS/3 ML VIAL SQ SCH ×4 (08:24→20:17)
[2018-07-31] MEDS: Furosemide 20 MG/2 ML VIAL IVP SCH (08:24)
[2018-07-31] MEDS: diazePAM 10 MG TABLET PO SCH ×2 (08:26→20:19)
[2018-07-31] MEDS: Rotigotine [Neupro] 1 PATCH TP SCH (08:26)
[2018-07-31] MEDS: Budesonide/Formoterol 160/4.5 1 PUFF INH IH SCH ×2 (10:54→22:00)
[2018-07-31] MEDS ORDERED: *HR* LORazepam 0.5 MG TABLET PO ONE (12:36)
--- NOTE | 2018-07-31 13:46 | Internal Med Progress Note ---
Hospitalist Progress Note - Encounter Date of Encounter: 07/31/18 Time of Encounter: 13:43 - Subjective Interval History: No acute events. 07/30: Patient states she does not feel better in terms of breathing. She does not want to be in the hospital though admits currently she is requiring O2 and IV Lasix. 07/31: Feeling much better. Breathing castillo more stable. Now off of daytime O2. - Exam Vitals: Temp Pulse Resp BP Pulse Ox 97.8 F 72 19 147/62 99 07/31/18 06:46 07/31/18 06:46 07/31/18 06:46 07/31/18 06:46 07/31/18 06:46 Exam: Gen: No acute distress, AAO x3, cooperative with exam CVS: RRR, no mrg Lungs: Course breath sounds, fair air exchange, scattered exp wheezing and rales. Significant improvement of air exchange compared to yesterday exam. Abd: Soft, +TTP diffuse, normal bowel sounds, no guarding, no rigidity. Incision c/d well healing Ext: left lower extremity with 2+ pitting edema. Right lower extremity unremarkable. Tibial Pulses 2+ bilaterally. - Assessment and Plan (1) Chest pain Current Visit: Yes Status: Acute Assessment and Plan: Possibly related to heart failure, multifocal pneumonia, COPD. Notify of consult in AM since currently after hours Cycle troponin, continue to monitor on telemetry. Continue Plavix, but hold aspirin until hemoglobin is trended. Treat HF exac with Lasix and fluid restriction, will need to treat for hospital acquired pneumonia due to recent hospitalization, give Steroids and neb therapy for COPD exacerbation. Cardiology consulted, plan for outpatient follow-up (2) Acute decompensated heart failure Current Visit: Yes Status: Acute Assessment and Plan: Known history of diastolic heart failure. Has some peripheral edema, though it is most notable on left lower extremity and not as bilateral. BNP is elevated. No JVD on exam. Lung exam limited from loud wheezing, but rales are appreciated. CXR shows edema and pleural effusion. Start Lasix 20 mg IV BID with close monitoring of renal function Fluid restriction diet monitor I/Os Elevate HOB >45 degrees. (3) COPD exacerbation Current Visit: Yes Status: Acute Assessment and Plan: Start ipratroprium and Xopenex scheduled Continue nebulizer therapy Not able to lower dose of Solu Medrol today as she is still having resp distress. De escalate antibiotics as tolerated. Taper Solu Medrol De escalate antibiotics to Omnicef (4) Hypertension Current Visit: Yes Status: Acute Assessment and Plan: Resume home medications. Currently takes Labetalol and metoprolol. Two beta blockers on med rec, will review records, will restart now. Also on lisinopril. Pharmacy has clarified that she takes metoprolol and NOT labetalol and so will resume that schedule. Lisinopril increased per Cardiology as patient is still hypertensive. Continue IV Hydralazine prn. (5) Diabetes Current Visit: Yes Status: Acute (6) Multifocal pneumonia Current Visit: Yes Status: Acute Assessment and Plan: Will need to cover for HAP since patient recently hospitalized and at SNF MRSA screen negative, DC Vanc. Follow-up procalcitonin, if negative, will discontinue antibiotics. de escalate abx (7) Anemia Current Visit: Yes Status: Acute Assessment and Plan: Unsure of when acute drop occurred. She had surgery one month ago on 06/28/18. Will need to review labs at those times. Repeat H&H at 18:00 today and then tomorrow AM. Will need close monitoring. For now, hold aspirin, but will resume Plavix because of her significant cardiac history. Will have better idea by tomorrow if aspirin can be restarted based on outside hospital labs and trending here. Resume home Prilosec. If concerns for GIB, will consult GI. If hemoglobin decreases, then stop SQ heparin and switch to EPCD for dvt prophylaxis. H&H fluctuated will need repeat this afternoon. Iron studies shows ferritin 62, but serum iron low at 13. May benefit from iron supplementation. Again, will consider GI consultation as an inpatient or outpatient, will need to be more stable from respiratory standpoint first. (8) CAD (coronary artery disease) Current Visit: No Status: Acute Assessment and Plan: Continue Plavix, hold aspirin for now. If there does not appear to be active GI bleed when trending H&H, then will need to resume aspirin due to significant cardiac history. (9) COPD (chronic obstructive pulmonary disease) Current Visit: No Status: Chronic - Time Spent with Patient Total time spent is greater than 50% in coordination of care (as documented) at patient's floor/unit and/or counseling patient: Internal Medicine: Result - Labs CBC & Chem 7: 07/31/18 05:27 07/31/18 05:27 Labs: Short CBC 07/31/18 Range/Units 05:27 WBC 8.2 D (4.3-11.1) K/mcL Hgb 8.1 L (11.5-15.4) g/dL Hct 26.2 L (35.3-44.9) % Plt Count 243 (140-400) K/mcL Neutrophils # 7.4 (1.6-8.9) K/mcL BMP 07/31/18 05:27 Sodium 130 L Potassium 4.1 Chloride 92 L Carbon Dioxide 28 BUN 26 H Creatinine 0.82 Glucose 402 H Calcium 8.9 - ABG Interpretation ABG results: PT/INR, D-dimer PT 13.0 Seconds (9.4-12.1) H 07/29/18 11:41 D-Dimer 1685 ng/mLFEU (0-500) H 07/29/18 11:41 Consult Discharge Plan - Plan Referrals: Lisa Emmanuel, [employer] [Primary Care Provider] - 08/18/18 10:45 am (1) Chest pain Qualifiers: Chest pain type: unspecified Qualified Code(s): R07.9 - Chest pain, unspecified (4) Hypertension Qualifiers: Hypertension type: essential hypertension Qualified Code(s): I10 - Essential (primary) hypertension (5) Diabetes Qualifiers: Diabetes mellitus type: type 2 Diabetes mellitus terminal makeup operator insulin use: unspecified intermediate insulin use status Diabetes mellitus complication status : with unspecified complications Qualified Code(s): E11.8 - Type 2 diabetes mellitus with unspecified complications (7) Anemia Qualifiers: Anemia type: unspecified type Qualified Code(s): D64.9 - Anemia, unspecified (8) CAD (coronary artery disease) Qualifiers: Coronary Disease-Associated Artery/Lesion type: bypass graft [place] vs. transplanted heart: [place] heart Associated angina: without angina Qualified Code(s): I25.810 - Atherosclerosis of coronary artery bypass graft(s) without angina pectoris (9) COPD (chronic obstructive pulmonary disease) Qualifiers: COPD type: unspecified COPD Qualified Code(s): J44.9 - Chronic obstructive pulmonary disease, unspecified
[2018-07-31] MEDS: Insulin DETEMIR 100 UNIT/ML X5UNITS SQ SCH (20:18)
[2018-07-31] MEDS: Cefdinir 300 MG CAPSULE PO SCH (20:18)
[2018-07-31] MEDS: traZODone 50 MG TABLET PO SCH (20:18)
[2018-08-01] MEDS: Levalbuterol Neb 1.25 MG/3 ML IH SCH (04:47)
[2018-08-01] MEDS: Ipratropium Neb 0.5 MG NEBULIZER IH SCH ×2 (04:47→09:49)
[2018-08-01 05:16] LABS: Eosinophils % 0.3 %; Hematocrit 27.8 % (35.3-44.9); Hemoglobin 8.6 g/dL (11.5-15.4); Immature Granulocytes % 0.4 % (0-4); Lymphocytes # 1.2 K/mcL (0.6-4.6); Lymphocytes % 16.6 %; Mean Corpuscular HGB Conc 30.9 g/dL (31.6-35.5); Mean Corpuscular Hemoglobin 26.1 pg (28.0-33.3); Mean Corpuscular Volume 84.2 fL (83.0-100.0); Mean Platelet Volume 9.3 fL (9.4-12.4); Monocytes # 0.3 K/mcL (0.0-1.3); Monocytes % 4.2 %; Neutrophils # 5.4 K/mcL (1.6-8.9); Platelet Count 245 K/mcL (140-400); Red Cell Distribution Width 15.6 % (11.5-14.5); Segmented Neutrophils % 78.5 %
[2018-08-01 05:32] LABS: BUN/Creatinine Ratio 35 (6-26); Blood Urea Nitrogen 28 mg/dL (8-23); Calcium 8.9 mg/dL (8.6-10.3); Carbon Dioxide 33 mEq/L (23-29); Chloride 98 mEq/L (98-107); Glucose 286 mg/dL (70-105); Osmolality,Calculated 300 (280-300); Potassium 3.7 mEq/L (3.5-5.1); Sodium 137 mEq/L (136-145); eGFR For Non-African Americans > 60 (> 60)
[2018-08-01] MEDS: *HR* Heparin 5,000 UNIT/ML VIAL SQ SCH (06:17)
[2018-08-01] MEDS: MethylPREDNISolone 40 MG/ML VIAL IVP SCH (06:17)
[2018-08-01 07:31] VITALS: BP 168/61
[2018-08-01] MEDS: Nicotine 21 MG PATCH.TD24 TD SCH (08:27)
[2018-08-01] MEDS: Cefdinir 300 MG CAPSULE PO SCH (08:28)
[2018-08-01] MEDS: Rotigotine [Neupro] 1 PATCH TP SCH (08:28)
[2018-08-01] MEDS: diazePAM 10 MG TABLET PO SCH (08:28)
[2018-08-01] MEDS: Insulin LISPRO 300 UNITS/3 ML VIAL SQ SCH (08:32)
--- NOTE | 2018-08-01 08:32 | Discharge Summary ---
- NOTES TO OUTPATIENT PROVIDER Notes to Outpatient Provider: - Plan is for outpatient Cardiology follow-up. - Ensure COPD improving, med compliance. Date of Encounter: 08/01/18 Time of Encounter: 08:30 - Discharge Diagnosis (1) Chest pain Priority: Primary Status: Acute Qualifiers: Chest pain type: unspecified Qualified Code(s): R07.9 - Chest pain, unspecified (2) Acute decompensated heart failure Priority: Secondary Status: Acute (3) COPD exacerbation Priority: Secondary Status: Acute (4) Hypertension Priority: Secondary Status: Acute Qualifiers: Hypertension type: essential hypertension Qualified Code(s): I10 - Essential (primary) hypertension (5) Diabetes Priority: Secondary Status: Acute Qualifiers: Diabetes mellitus type: type 2 Diabetes mellitus intermodal dispatcher insulin use: unspecified residential insulin use status Diabetes mellitus complication status : with unspecified complications Qualified Code(s): E11.8 - Type 2 diabetes mellitus with unspecified complications (6) Multifocal pneumonia Priority: Secondary Status: Acute (7) Anemia Priority: Secondary Status: Acute Qualifiers: Anemia type: unspecified type Qualified Code(s): D64.9 - Anemia, unspecified (8) CAD (coronary artery disease) Priority: Secondary Status: Acute Qualifiers: Coronary Disease-Associated Artery/Lesion type: bypass graft [place] vs. transplanted heart: [place] heart Associated angina: without angina Qualified Code(s): I25.810 - Atherosclerosis of coronary artery bypass graft(s) without angina pectoris (9) COPD (chronic obstructive pulmonary disease) Priority: Secondary Status: Chronic Qualifiers: COPD type: unspecified COPD Qualified Code(s): J44.9 - Chronic obstructive pulmonary disease, unspecified Hospital course: Ms. Gonzales is a 72 year old female with history of diastolic heart failure, CAD status-post CABG, recent AAA repair on 06/28/18 presented for a 3 day history of chest pain and abdominal pain. She was encouraged to come in by her home health aid. Patient accompanied with daughter. Per patient, chest pain is dull , substernal, and abdominal pain is described as sharp. She believes the abdominal pain is easily reproduced if she palpates it. Chest pain can last 30 min at a time and has subsided. She is having increasing shortness of breath and also increased swelling of her left lower extremity. She feels increased wheezing as well. She denies fevers/chills, productive cough, diaphoresis, headaches. In the ED a chest x-ray showed vascular congestion. A CTA of chest showed multi -focal pneumonia and pleural effusion. A CTA abdomen and pelvis showed patient iliac artery bypass grafts, inguinal seromas. A BNP was elevated at 618. Patient's recent AAA surgery was at an outside hospital. She had a borderline elevated troponin of 0.04. A hemoglobin was low at 8.7. At our facility on 01/19, hemoglobin was 13.6 as a baseline. A FOBT was negative in ED. She was admitted for chest pain and acute respiratory failure due to heart failure, COPD, and pneumonia. Cardiology was consulted and no intervention was warranted after workup. She was diuresed with IV Lasix and started on Solu Medrol. Lisinopril dose increased from home to 20 mg daily because of hypertension. She was treated with cefepime for pneumonia since she was recently hospitalized. She improved after 3 days of treatment. Patient was back to baseline breathing. She is discharged in stable condition to complete Omnicef, short course of Lasix, and increased Lisinopril, and a long Prednisone 15 day taper. - Time Spent with Patient Total time spent providing and/or coordinating discharge services: - Discharge Medications Prescriptions: Cefdinir [Omnicef] 300 mg PO BID #8 capsule Home Medications: Aspirin [Lo-Dose Aspirin EC] 81 mg PO DAILY 04/29/17 [History] Celecoxib [Celebrex] 200 mg PO DAILY 04/29/17 [History] Insulin ASPART [Novolog Flexpen] 4 unit SQ TIDWM 04/29/17 [History] Ipratropium/Albuterol Sulfate [Combivent Respimat Inhal [place]] 1 puff IH QID [History] Levalbuterol [Xopenex INH] 1 puff IH TID PRN 04/29/17 [History] Lidocaine Patch [Lidoderm 5% patch] 1 each TP DAILY 04/29/17 [History] Metoprolol Tartrate [Lopressor] 25 mg PO BID 04/29/17 [History] [place]-3S/Dha/Epa/Fish Oil [Fish Oil [place]-3 Softgel] 1 each PO DAILY 04/29/17 [ History] Omeprazole [PriLOSEC] 40 mg PO BID 04/29/17 [History] Rotigotine [Neupro] 1 patch TD DAILY 04/29/17 [History] Trazodone HCl 50 mg PO HS 04/29/17 [History] diazePAM [Valium] 10 mg PO BID 04/29/17 [History] Clopidogrel [Plavix] 75 mg PO DAILY #30 tablet 04/30/17 [Rx] Atorvastatin [Lipitor] 40 mg PO HS 03/24/18 [History] Fluticasone/Salmeterol [Advair 500-50 Diskus] 1 each IH DAILY 03/24/18 [History] Naproxen Sodium [All Day Pain Relief] 220 mg PO TID PRN 03/24/18 [History] HYDROcodone/Acet 5/325 mg [[place] 5-325 mg] 1 tab PO DAILY PRN 07/29/18 [History] Cefdinir [Omnicef] 300 mg PO BID #8 capsule 08/01/18 [Rx] Furosemide [Lasix] 20 mg PO DAILY #3 tablet 08/01/18 [Rx] Lisinopril [Zestril] 20 mg PO DAILY #30 tablet 08/01/18 [Rx] predniSONE [PredniSONE] See Taper PO DAILY #35 tablet 08/01/18 [Rx] Allergies/Adverse Reactions: 3 Allergy/AdvReac Type Severity Reaction Status Date / Time albuterol AdvReac Chest Pain Verified 07/29/18 10:42 ciprofloxacin [From Cipro] AdvReac Vomiting Verified 07/29/18 10:42 doxycycline AdvReac Nausea Verified 07/29/18 10:42 pregabalin [From Lyrica] AdvReac Fatigued Verified 07/29/18 10:42 Date of admission: 07/30/18 12:24 Primary care physician: Lisa Emmanuel, [employer] MANAGER Discharging clinician: Simba Evans - Constitutional Vitals: Temp Pulse Resp BP Pulse Ox 97.5 F L 64 17 168/61 99 08/01/18 07:29 08/01/18 07:29 08/01/18 07:29 08/01/18 07:29 08/01/18 07:29 Exam: Gen: No acute distress, AAO x3, cooperative with exam CVS: RRR, no mrg Lungs: Course breath sounds, fair air exchange, scattered exp wheezing and rales. Significant improvement of air exchange compared to yesterday exam. Abd: Soft, +TTP diffuse, normal bowel sounds, no guarding, no rigidity. Incision c/d well healing Ext: left lower extremity with 2+ pitting edema. Right lower extremity unremarkable. Tibial Pulses 2+ bilaterally. - Patient Status Disposition: Home, Self-Care Condition: Fair Functional capacity at discharge: uses cane/walker Overall status at discharge: patient is progressing back to baseline - Discharge Instructions Follow Up With: Lisa Emmanuel COLLEGE [employer] UNIVERSITY BUSINESS MANAGER [Primary Care Provider] - 08/18/18 10:45 am - Diet and Activity Activity: increase activity as tolerated Diet: advance to your usual diet
--- NOTE | 2018-08-01 09:01 | Physician Discharge Referral ---
Home Health/Hosp Referral Info Transfer to: Home Health Provider in Charge Post Discharge: PCP - Diagnosis (1) Chest pain Priority: Primary Status: Acute (2) Acute decompensated heart failure Priority: Secondary Status: Acute (3) COPD exacerbation Priority: Secondary Status: Acute (4) Hypertension Priority: Secondary Status: Acute (5) Diabetes Priority: Secondary Status: Acute (6) Multifocal pneumonia Priority: Secondary Status: Acute (7) Anemia Priority: Secondary Status: Acute (8) CAD (coronary artery disease) Priority: Secondary Status: Acute (9) COPD (chronic obstructive pulmonary disease) Priority: Secondary Status: Chronic - Respiratory Orders Smoking Cessation: Smoking cessation has been advised. For more information, call the [place] Tobacco Quit Line at 9-969-GAES-NOW. - Diet/Nutrition Diet/Nutrition Orders: Cardiac, No Concentrated Sweets - Activity Activity Orders: Walker - Services Needed Following services are medically necessary services: Nursing, Home Health Aide, Physical Therapy, Occupational Therapy - Transfer Medications Prescriptions: Cefdinir [Omnicef] 300 mg PO BID #8 capsule Furosemide [Lasix] 20 mg PO DAILY #3 tablet Lisinopril [Zestril] 20 mg PO DAILY #30 tablet predniSONE [PredniSONE] See Taper PO DAILY #35 tablet Home Medications: Aspirin [Lo-Dose Aspirin EC] 81 mg PO DAILY 04/29/17 [History] Celecoxib [Celebrex] 200 mg PO DAILY 04/29/17 [History] Insulin ASPART [Novolog Flexpen] 4 unit SQ TIDWM 04/29/17 [History] Ipratropium/Albuterol Sulfate [Combivent Respimat Inhal [place]] 1 puff IH QID [History] Levalbuterol [Xopenex INH] 1 puff IH TID PRN 04/29/17 [History] Lidocaine Patch [Lidoderm 5% patch] 1 each TP DAILY 04/29/17 [History] Metoprolol Tartrate [Lopressor] 25 mg PO BID 04/29/17 [History] [place]-3S/Dha/Epa/Fish Oil [Fish Oil [place]-3 Softgel] 1 each PO DAILY 04/29/17 [ History] Omeprazole [PriLOSEC] 40 mg PO BID 04/29/17 [History] Rotigotine [Neupro] 1 patch TD DAILY 04/29/17 [History] Trazodone HCl 50 mg PO HS 04/29/17 [History] diazePAM [Valium] 10 mg PO BID 04/29/17 [History] Clopidogrel [Plavix] 75 mg PO DAILY #30 tablet 04/30/17 [Rx] Atorvastatin [Lipitor] 40 mg PO HS 03/24/18 [History] Fluticasone/Salmeterol [Advair 500-50 Diskus] 1 each IH DAILY 03/24/18 [History] Naproxen Sodium [All Day Pain Relief] 220 mg PO TID PRN 03/24/18 [History] HYDROcodone/Acet 5/325 mg [[place] 5-325 mg] 1 tab PO DAILY PRN 07/29/18 [History] Cefdinir [Omnicef] 300 mg PO BID #8 capsule 08/01/18 [Rx] Furosemide [Lasix] 20 mg PO DAILY #3 tablet 08/01/18 [Rx] Lisinopril [Zestril] 20 mg PO DAILY #30 tablet 08/01/18 [Rx] predniSONE [PredniSONE] See Taper PO DAILY #35 tablet 08/01/18 [Rx] Allergies/Adverse Reactions: 3 Allergy/AdvReac Type Severity Reaction Status Date / Time albuterol AdvReac Chest Pain Verified 07/29/18 10:42 ciprofloxacin [From Cipro] AdvReac Vomiting Verified 07/29/18 10:42 doxycycline AdvReac Nausea Verified 07/29/18 10:42 pregabalin [From Lyrica] AdvReac Fatigued Verified 07/29/18 10:42 Certification: Further, I certify that my clinical findings support that this patient is homebound (i.e. absences from home require considerable and taxing effort and are for medical reasons or jehovah's witness services or infrequently or short duration when for other reasons) because: Homebound Reason: Patient requires assistance of a person or device to safely leave home, Leaving home requires considerable and taxing effort due to condition Attestation: My signature below is to certify that this patient is under my care and that I, or nurse practitioner, or a physician's news assistant working with me, has a face-to -face encounter with this patient.
[2018-08-01] MEDS: Budesonide/Formoterol 160/4.5 1 PUFF INH IH SCH (09:49)
[2018-08-02 12:08] LABS: Mycoplasma pneumoniae IgG 0.64 U/L (<=0.09)
--- NOTE | 2018-08-03 08:38 | Electrocardiograph Report ---
[place] [id number] Test Date: 2018-07-29 Pat Name: Mable Gonzales Department: [id number] Room: 3B Gender: F Ortho Rn: ASHLEY : 1945 Requested By: Juan Marcano Order Number: [id number] Reading MD: Koko Casanova Measurements Intervals [place] Rate: 63 P: 74 RI: 169 QRS: 41 QRSD: 85 T: 102 QT: 421 QTc: 428 Interpretive Statements SINUS RHYTHM NONSPECIFIC T-WAVE ABNORMALITY Electronically Signed On 08-03-2018 8:36:53 EDT by Koko Casanova
== END 2018-08-01 11:29 | disposition home or self-care (01) | DRG 291 ==
LOC: 3BNU 10:27 → EMEROOARM 10:27 → 3BNU 17:35
PROVIDERS: ADMIT Internal Medicine; ATTEND Internal Medicine

== ENCOUNTER 2018-08-27 20:31 | Observation (INO) ==
--- NOTE | 2018-08-27 22:18 | Internal Med History&Physical ---
<Magdalene Herrera N - Last Filed: 08/28/18 00:28> Date of Encounter: 08/27/18 Time of Encounter: 22:18 Internal Medicine - H&P: HPI Chief complaint: Somnolence Admitted From: Hospital to Hospital Transfer History of present illness: Ms. Gonzales is a 72 year old female with a history of COPD, CAD, DM, fibromyalgia, HLD, HTN, and CVA. She is a transfer from an outside ED, where she presented with somnolence and variable blood glucose and pressure readings. She states that she took naproxen this morning for pain, after which she fell asleep. She reports that she fell out of bed while sleeping, but denies hitting her head. Her daughter checked her blood sugar at that time and found it to be 42. Patient had some glucose gel with temporary improvement in her blood sugar; however, she states that it dropped again soon after. She also reports that her blood pressure has been "all over the place" today. Patient does report starting valium last night, which is a new medication for her. Workup performed at outside facility revealed an elevated troponin of 0.070. Patient had a recent history of aortobifemoral bypass, which was performed in June of this year; therefore, she was transferred to [facility] for further monitoring. ROS is significant for left-sided abdominal pain over the last several days that is worse when bearing down, such as with bowel movements. She reports a mass beneath her left groin incision that is tender to palpation. She also reports diarrhea over the last several days, with 4-5 bowel movements per day. She reports increased urinary frequency. On evaluation, patient is alert and oriented. She denies any acute complaints or concerns, though she does appear sleepy. Past Med Surg Social Fam HX - Past Medical History Medical history: COPD, coronary artery disease, diabetes, fibromyalgia, hyperlipidemia, hypertension Additional medical history: thyroid mass, carotid disease, multiple stents Psychiatric history: anxiety - Past Surgical History Surgical History: angioplasty/stent, coronary bypass (CABG) - Social History Smoking Status: Current every day smoker Smokeless Tobacco Status: No Alcohol use: occasionally Drug use: none - Family History Father Family Member Ethnicity: Non- Living Status: Hx Family Cardiac Disorders: Yes Mother Age: 84 Living Status: Age at : 84 Cause of : Stroke Hx Family Cardiac Disorders: Yes Hx Family Respiratory Disorders: No Hx Family Cancer: No Hx Family GI Disorders: No Hx Family Genitourinary Disorders: No Hx Family Endocrine Disorder: Yes (DM) Hx Family Musculoskeletal Disorders: No Hx Family Neuromuscular Disorders: No Hx Family Neurologic Disorders: No Hx Family HEENT Disorders: No Hx Family Autoimmune Disorders: No Hx Family Reproductive Disorders: No Hx Family Psychosocial Disorders: No Hx Family Medical Disorders: No Internal Medicine - H&P: Meds Aspirin [Lo-Dose Aspirin EC] 81 mg PO DAILY 04/29/17 [History] Celecoxib [Celebrex] 200 mg PO DAILY 04/29/17 [History] Insulin ASPART [Novolog Flexpen] 4 unit SQ TIDWM 04/29/17 [History] Ipratropium/Albuterol Sulfate [Combivent Respimat Inhal [place]] 1 puff IH QID 04/29/17 [History] Levalbuterol [Xopenex INH] 1 puff IH TID PRN 04/29/17 [History] Metoprolol Tartrate [Lopressor] 25 mg PO BID 04/29/17 [History] [place]-3S/Dha/Epa/Fish Oil [Fish Oil [place]-3 Softgel] 1 each PO DAILY 04/29/17 [History] Omeprazole [PriLOSEC] 40 mg PO BID 04/29/17 [History] Trazodone HCl 50 mg PO HS 04/29/17 [History] Clopidogrel [Plavix] 75 mg PO DAILY #30 tablet 04/30/17 [Rx] Atorvastatin [Lipitor] 40 mg PO HS 03/24/18 [History] Fluticasone/Salmeterol [Advair 500-50 Diskus] 1 each IH DAILY 03/24/18 [History] Naproxen Sodium [All Day Pain Relief] 220 mg PO TID PRN 03/24/18 [History] Furosemide [Lasix] 20 mg PO DAILY #3 tablet 08/01/18 [Rx] Lisinopril [Zestril] 20 mg PO DAILY #30 tablet 08/01/18 [Rx] Allergy/AdvReac Type Severity Reaction Status Date / Time albuterol AdvReac Chest Pain Verified 08/15/18 12:19 ciprofloxacin [From Cipro] AdvReac Vomiting Verified 08/15/18 12:19 doxycycline AdvReac Nausea Verified 08/15/18 12:19 pregabalin [From Lyrica] AdvReac Fatigued Verified 08/15/18 12:19 All Systems PM: A 10-system review of systems was performed and is negative for pertinent findings except as documented above in the HPI. - Constitutional Exam: GENERAL: Pleasant elderly female lying in bed comfortably. She does not appear to be in acute distress. Audible wheezes present while patient is conversant. HEENT: Atraumatic and normocephalic. Nasal canula in place. Oral mucosa moist. CARDIOVASCULAR: Regular rate and rhythm. S1 and S2 present. 3/6 systolic murmur present. RESPIRATORY: Bilateral expiratory wheeze present. Equal air movement bilaterally. No accessory muscle use. GASTROINTESTINAL: Midline and bilateral groin surgical incisions present that appear to be healing well. Abdomen is soft and nondistended. Palpable mass present beneath bilateral groin incisions, with slightly increased fullness on the left. No increase in size increased abdominal pressure. Patient is tender to palpation in LLQ near incision. EXTREMITIES: Left lower extremity appears slightly edematous and erythematous as compared to the right, with increased warmth present. Slight fullness in left popliteal fossa. Patient is tender to palpation along left calf. NEUROLOGIC: A&O x3. Patient answers questions appropriately and is cooperative with exam. - Assessment and plan (1) Somnolence Current Visit: Yes Status: Acute Assessment and plan: Per outside ED documentation, one of the main concerns voiced by the patient's daughter was increased somnolence. Suspect that this is secondary to valium that the patient took last night. UDS was positive for benzodiazepines. Review of clinic records shows initiation of therapy with baclofen by her PCP at an appointment on 08/26/18. It is unclear if she has started that medication. Suspect that patient's reported variations in blood glucose and pressure today were likely secondary to new medication use. - Hold valium and baclofen - Continue monitoring (2) Elevated troponin Current Visit: Yes Status: Acute Assessment and plan: Patient was found to have an elevated troponin of 0.07 at outside ED; however, EKG demonstrated no indications of acute ischemic process. Review of patient's prior hospital labs reveals elevated troponins on prior admissions as well. Patient denies any chest pain or discomfort at this time. Patient has a history of congestive heart failure. Her last echocardiogram was performed on 07/30/18, which demonstrated LVEF of 65%. Other significant findings included mild LV diastolic dysfunction, mild concentric LV hypertrophy, mildly dilated RV with mild hypokinesis, mildly dilated left atrium, mild aortic stenosis, and mild tricuspid regurgitation. - Telemetry monitoring - Repeat EKG - Repeat troponin with AM labs - Continue home medication for CHF (3) Left leg swelling Current Visit: Yes Status: Acute Assessment and plan: Patient has warmth and erythema of the left lower extremity with some tenderness to palpation. There is also slight fulness in the left popliteal fossa. Patient states that prior to her recent bypass surgery, she had venous insufficiency in that leg and often had significant swelling. She denies noticing any acute change in that extremity. Left lower extremity doppler ultrasound pending to rule out DVT. (4) Diabetes Current Visit: No Status: Acute Assessment and plan: Patient reports elevated blood glucose readings in the 300s over the last several weeks; however, she completed a 2-week course of oral steroids approximately one week ago. She reports a blood glucose of this 49 this morning, and states that her blood glucose temporarily improved after administration of glucose gel; however, it again decreased. She says her glucose readings have been variable all day. Patient does administer 40units of long-acting insulin at night. As she took valium last night for the first time, suspect she may have slept later and missed her normal morning mealtime. - Accuchecks TIDAC and HS - 4 units prandial insulin - 20 units basal insulin - Low-dose corrective SSI Qualifiers: Diabetes mellitus type: type 2 Diabetes mellitus detention insulin use: unspecified detention insulin use status Diabetes mellitus complication status: with unspecified complications Qualified Code(s): E11.8 - Type 2 diabetes mellitus with unspecified complications (5) Hypertension Current Visit: Yes Status: Chronic Assessment and plan: Patient reports variable blood pressure measurements today. Per outside records, last reported BP prior to transfer was found to be 164/49. BP on arrival to [facility] was found to be 174/69. - Vital signs Q4H - Continue home medications of metoprolol 25mg BID and lisinopril 20mg - Continue monitoring for signs of hyper or hypotension Qualifiers: Hypertension type: essential hypertension Qualified Code(s): I10 - Essential (primary) hypertension (6) COPD (chronic obstructive pulmonary disease) Current Visit: Yes Status: Chronic Assessment and plan: Patient has a history of COPD; however, she denies any worsening shortness of breath and does not appear to be having a COPD exacerbation. Will continue home treatment regimen as follows: - Levalbuterol TID PRN - Symbicort QD - Advair BID Qualifiers: COPD type: unspecified COPD Qualified Code(s): J44.9 - Chronic obstructive pulmonary disease, unspecified (7) DVT prophylaxis Current Visit: Yes Status: Acute Assessment and plan: Heparin 5000units SQ Q8H. - Time Spent With Patient Total time spent is greater than 50% in coordination of care (as documented) at patient's floor/unit and/or counseling patient: <Robin Arnoldcinda - Last Filed: 08/28/18 02:14> All Systems PM: A 10-system review of systems was performed and is negative for pertinent findings except as documented above in the HPI. - Constitutional Vitals: Temp Pulse Resp BP Pulse Ox 98.2 F 86 16 174/69 97 08/27/18 22:51 08/27/18 22:51 08/27/18 22:51 08/27/18 22:51 08/27/18 22:51 - Assessment and plan (1) COPD (chronic obstructive pulmonary disease) Current Visit: Yes Status: Chronic Qualifiers: COPD type: unspecified COPD Qualified Code(s): J44.9 - Chronic obstructive pulmonary disease, unspecified (2) Hypertension Current Visit: Yes Status: Chronic Qualifiers: Hypertension type: essential hypertension Qualified Code(s): I10 - Essential (primary) hypertension (3) Diabetes Current Visit: No Status: Acute Qualifiers: Diabetes mellitus type: type 2 Diabetes mellitus 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 She is a 72 year old woman with a history of recent aortic bypass surgery. Information relayed to me by the ED provider at [facility] is that she was taken there by her daughter due to concerns for her general state of being, noted somewhat more fatigued and somnolent than usual. The patient tells me she was taken there because her numbers were all over the place. There comprehensive studies were done and grossly unremarkable except a troponin of 0.08 which on repeat was 0.07. On my review of old records here it is seen that she has had this type of troponin elevations without acute clinical significance and likely secondary to her cardiovascular history and therefore needs to be put in clinical context. The patient denies dyspnea, chest pain, nausea, dizziness, headache, flushing, and chest tightness. She says she is a bit tired but otherwi se nothing is bothering her. Upon further discussion with the patient, she admits that she started taking diazepam and baclofen a day or 2 ago which likely explains her somnolence. Physical exam is remarkable for well-developed white female lying comfortably in bed in no acute distress, skin supple & warm, moist mucous membranes, EOMI, no JVD/LAD, normal S1 and S2 with no murmur, no wheezes rales or rhonchi auscultated on chest auscultation. Abdomen soft and nontender. Left leg has a wound on the tibial aspect of her scott with some slight surrounding erythema and tenderness. No focal deficits are apparent. Affect is appropriate. AAOx3. We shall obtain comprehensive labs here. No indication for dual antiplatelet or anticoagulation therapy just based off isolated borderline elevated troponin levels without clinical correlation. EKG does not show signs of acute ischemic disease. Advised to get a TTE in the morning to assess wall morphology. Hold sedating medications and monitor vitals. I agree with obtaining a Doppler for her left lower extremity to ensure there are no clots. Should resume insulin for diabetes. Oral antihypertensives can be given. No signs of COPD exacerb ation and therefore she can be on albuterol when necessary. Heparin indicated for DVT prophylaxis. KANDY BARTH.
[2018-08-27] MEDS ORDERED: Naloxone 0.4 MG/ML INJ IVP PRN (23:50)
[2018-08-27] MEDS ORDERED: Dextrose Gel 15 GM/37.5 ML TUBE PO PRN ×2 (23:52)
[2018-08-27] MEDS ORDERED: *HR* Dextrose 50 % in Water (Syg) 50 ML SYRINGE IVP PRN (23:52)
[2018-08-27] MEDS ORDERED: D5% in Water 1,000 ML IVC PRN (23:52)
[2018-08-28] MEDS: Insulin LISPRO 300 UNITS/3 ML VIAL SQ SCH ×10 (00:05→21:16)
[2018-08-28] MEDS: Insulin DETEMIR 100 UNIT/ML X5UNITS SQ SCH ×2 (01:09→21:15)
[2018-08-28] MEDS: (Combivent Respimat InH) IH SCH ×4 (03:26→22:25)
[2018-08-28 05:53] LABS: Basophils % 0.7 %; Eosinophils # 0.3 K/mcL (0.0-0.6); Eosinophils % 5.3 %; Hematocrit 31.4 % (35.3-44.9); Hemoglobin 9.6 g/dL (11.5-15.4); Immature Granulocytes % 0.3 % (0-4); Lymphocytes # 1.6 K/mcL (0.6-4.6); Mean Corpuscular HGB Conc 30.6 g/dL (31.6-35.5); Mean Corpuscular Hemoglobin 26.3 pg (28.0-33.3); Mean Platelet Volume 9.5 fL (9.4-12.4); Monocytes # 0.4 K/mcL (0.0-1.3); Monocytes % 6.8 %; Neutrophils # 3.5 K/mcL (1.6-8.9); Platelet Count 252 K/mcL (140-400); Red Blood Count 3.65 M/mcL (3.82-4.97); Red Cell Distribution Width 16.6 % (11.5-14.5); Segmented Neutrophils % 59.9 %
[2018-08-28 06:01] LABS: Prothrombin Time 11.2 Seconds (9.4-12.1)
[2018-08-28 06:04] LABS: Activated Partial Thrombo Time 30.7 Seconds (26.0-36.0)
[2018-08-28 06:16] LABS: BUN/Creatinine Ratio 16 (6-26); Blood Urea Nitrogen 16 mg/dL (8-23); Calcium 9.1 mg/dL (8.6-10.3); Carbon Dioxide 33 mEq/L (23-29); Chloride 99 mEq/L (98-107); Glucose 371 mg/dL (70-105); Osmolality,Calculated 304 (280-300); Potassium 4.2 mEq/L (3.5-5.1); Sodium 139 mEq/L (136-145); eGFR For Non-African Americans 57 (> 60)
[2018-08-28 06:19] LABS: Troponin I 0.04 ng/mL (< 0.04)
[2018-08-28] MEDS: *HR* Heparin 5,000 UNIT/ML VIAL SQ SCH ×3 (06:32→22:27)
[2018-08-28] MEDS: Furosemide 20 MG TABLET PO SCH (08:12)
[2018-08-28] MEDS: Celecoxib 200 MG CAPSULE PO SCH (08:12)
[2018-08-28] MEDS: Lisinopril 20 MG TABLET PO SCH (08:12)
[2018-08-28] MEDS: Aspirin Enteric Coated 81 MG Tablet PO SCH (08:12)
[2018-08-28] MEDS: Budesonide/Formoterol 160/4.5 1 PUFF INH IH SCH (10:57)
[2018-08-28] MEDS: Levalbuterol 1 PUFF INHALER IH PRN ×2 (11:01→22:00)
[2018-08-28 11:35] LABS: Adenovirus F 40/41 PCR Not detected (Not detect); Astrovirus PCR Not detected (Not detect); C.difficile Toxin A/B by PCR Not detected (Not detect); Campylobacter by PCR Not detected (Not detect); Cryptosporidium by PCR Not detected (Not detect); Cyclospora cayetanensis PCR Not detected (Not detect); E. coli O157 by PCR Not detected (Not detect); Entamoeba histolytica PCR Not detected (Not detect); Enteroaggregative E.coli(EAEC) Not detected (Not detect); Enteropathogenic E.coli(EPEC) Not detected (Not detect); Enterotoxigenic E.coli (ETEC) Not detected (Not detect); Giardia lamblia PCR Not detected (Not detect); Norovirus GI/GII PCR Not detected (Not detect); Plesiomonas shigelloides PCR Not detected (Not detect); Rotavirus A PCR Not detected (Not detect); Salmonella PCR Not detected (Not detect); Sapovirus PCR Not detected (Not detect); Shig/EnteroinvasiveE coli EIEC Not detected (Not detect); Shigalike tox-prod E coli STEC Not detected (Not detect); Vibrio PCR Not detected (Not detect); Vibrio cholerae PCR Not detected (Not detect); Yersinia enterocolitica PCR Not detected (Not detect)
--- NOTE | 2018-08-28 15:00 | Electrocardiograph Report ---
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
--- NOTE | 2018-08-28 18:30 | Internal Med Progress Note ---
Hospitalist Progress Note - Encounter Date of Encounter: 08/28/18 Time of Encounter: 10:00 - Subjective Interval History: Patient was seen and examined earlier this morning she is alert and appropriate following simple commands. When asked patient why she is here she states "because my daughter overreacted " - Exam Vitals: Temp Pulse Resp BP Pulse Ox 98.0 F 77 16 159/64 97 08/28/18 16:35 08/28/18 16:35 08/28/18 16:35 08/28/18 16:35 08/28/18 16:35 Exam: GENERAL: Pleasant elderly female lying in bed comfortably. She does not appear to be in acute distress. Audible wheezes present while patient is conversant. HEENT: Atraumatic and normocephalic. Nasal canula in place. Oral mucosa moist. CARDIOVASCULAR: Regular rate and rhythm. S1 and S2 present. 3/6 systolic murmur present. RESPIRATORY: Bilateral expiratory wheeze present. Equal air movement bilater ally. No accessory muscle use. GASTROINTESTINAL: Midline and bilateral groin surgical incisions present that appear to be healing well. Abdomen is soft and nondistended. Palpable mass present beneath bilateral groin incisions, with slightly increased fullness on the left. No increase in size increased abdominal pressure. Patient is tender to palpation in LLQ near incision. EXTREMITIES: Left lower extremity appears slightly edematous and erythematous as compared to the right, with increased warmth present. Slight fullness in left popliteal fossa. Patient is tender to palpation along left calf. NEUROLOGIC: A&O x3. Patient answers questions appropriately and is cooperative with exam. - Assessment and Plan (1) COPD (chronic obstructive pulmonary disease) Current Visit: Yes Status: Chronic Assessment and Plan: Patient has a history of COPD; however, she denies any worsening shortness of breath and does not appear to be having a COPD exacerbation. Will continue home treatment regimen as follows: - Levalbuterol TID PRN - Symbicort QD - Advair BID 08/27 History of COPD does not appear to be any respiratory distress at this time Continue with current home treatment Oxygen as needed (2) Hypertension Current Visit: Yes Status: Chronic Assessment and Plan: Patient reports variable blood pressure measurements today. Per outside records, last reported BP prior to transfer was found to be 164/49. BP on arrival to [facility] was found to be 174/69. - Vital signs Q4H - Continue home medications of metoprolol 25mg BID and lisinopril 20mg - Continue monitoring for signs of hyper or hypotension 08/28 Currently blood pressure appears to be controlled we will continue with home medications (3) Diabetes Current Visit: No Status: Acute Assessment and Plan: Patient reports elevated blood glucose readings in the 300s over the last several weeks; however, she completed a 2-week course of oral steroids approximately one week ago. She reports a blood glucose of this 49 this morning, and states that her blood glucose temporarily improved after administration of glucose gel; however, it again decreased. She says her glucose readings have been variable all day. Patient does administer 40units of long-acting insulin at night. As she took valium last night for the first time, suspect she may have slept later and missed her normal morning mealtime. - Accuchecks TIDAC and HS - 4 units prandial insulin - 20 units basal insulin - Low-dose corrective SSI 08/28 Continue with Accu-Cheks before meals at bedtime Continue with basal as well as corrective insulin (4) Elevated troponin Current Visit: Yes Status: Acute Assessment and Plan: Patient was found to have an elevated troponin of 0.07 at outside ED; however, EKG demonstrated no indications of acute ischemic process. Review of patient's prior hospital labs reveals elevated troponins on prior admissions as well. Patient denies any chest pain or discomfort at this time. Patient has a history of congestive heart failure. Her last echocardiogram was performed on 07/30/18, which demonstrated LVEF of 65%. Other significant findings included mild LV diastolic dysfunction, mild concentric LV hypertrophy, mildly dilated RV with mild hypokinesis, mildly dilated left atrium, mild aortic stenosis, and mild tricuspid regurgitation. - Telemetry monitoring - Repeat EKG - Repeat troponin with AM labs - Continue home medication for CHF 08/28 Patient did have an elevated outside facility EKG with no excuse with prominent sinus review labs to show elevated troponin which is chronic. She denies any chest pain or discomfort Continue to monitor troponin Continuous cardiac monitoring Will obtain cardiac echo-pending at this time (5) DVT prophylaxis Current Visit: Yes Status: Acute Assessment and Plan: Heparin 5000units SQ Q8H. (6) Somnolence Current Visit: Yes Status: Acute Assessment and Plan: Per outside ED documentation, one of the main concerns voiced by the patient's daughter was increased somnolence. Suspect that this is secondary to valium that the patient took last night. UDS was positive for benzodiazepines. Review of clinic records shows initiation of therapy with baclofen by her PCP at an appointment on 08/26/18. It is unclear if she has started that medication. Suspect that patient's reported variations in blood glucose and pressure today were likely secondary to new medication use. - Hold valium and baclofen - Continue monitoring 08/28 Patient is awake and appropriate at this time we will continue to hold Valium and baclofen and continue to monitor (7) Left leg swelling Current Visit: Yes Status: Acute Assessment and Plan: Patient has warmth and erythema of the left lower extremity with some tenderness to palpation. There is also slight fulness in the left popliteal fossa. Patient states that prior to her recent bypass surgery, she had venous insufficiency in that leg and often had significant swelling. She denies noticing any acute change in that extremity. Left lower extremity doppler ultrasound pending to rule out DVT. 08/28 Vascular preliminary with no DVT noted - Time Spent with Patient Total time spent is greater than 50% in coordination of care (as documented) at patient's floor/unit and/or counseling patient: Internal Medicine: Result - Labs CBC & Chem 7: 08/28/18 05:13 08/28/18 05:13 Labs: Short CBC 08/28/18 Range/Units 05:13 WBC 5.9 (4.3-11.1) K/mcL Hgb 9.6 L (11.5-15.4) g/dL Hct 31.4 L (35.3-44.9) % Plt Count 252 (140-400) K/mcL Neutrophils # 3.5 (1.6-8.9) K/mcL BMP 08/28/18 05:13 Sodium 139 Potassium 4.2 Chloride 99 Carbon Dioxide 33 H BUN 16 Creatinine 0.97 Glucose 371 H Calcium 9.1 Cardiac Enzymes 08/28/18 08/28/18 Range/Units 05:13 10:42 Troponin I 0.04 H* 0.04 H* (< 0.04) ng/mL - ABG Interpretation ABG results: PT/INR, D-dimer PT 11.2 Seconds (9.4-12.1) 08/28/18 05:13 - Impressions Impressions Echocardiogram 08/28/18 08:19 Impressions: Technically adequate exam. LVEF 60-65%. Mild concentric left ventricular hypertrophy. Mild left ventricular diastolic dysfunction. Mild right ventricular hypokinesis. Mildly dilated right ventricle. Mildly calcified aortic valve leaflets. Trace tricuspid regurgitation. Consult Discharge Plan - Plan Referrals: NONE,PCP [Primary Care Provider] - (1) COPD (chronic obstructive pulmonary disease) Qualifiers: COPD type: unspecified COPD Qualified Code(s): J44.9 - Chronic obstructive pulmonary disease, unspecified (2) Hypertension Qualifiers: Hypertension type: essential hypertension Qualified Code(s): I10 - Essential (primary) hypertension (3) Diabetes Qualifiers: Diabetes mellitus type: type 2 Diabetes mellitus correction insulin use: unspecified correction insulin use status Diabetes mellitus complication status: with unspecified complications Qualified Code(s): E11.8 - Type 2 diabetes mellitus with unspecified complications
[2018-08-29 03:56] LABS: Bilirubin,Urine Negative (Negative); Blood,Urine Negative (Negative); Clarity,Urine Clear (Clear); Color,Urine Yellow (Yellow); Glucose,Urine (UA) 250 mg/dL (Normal); Ketones,Urine Negative (Negative); Leukocyte Esterase,Urine Moderate (Negative); Nitrite,Urine Negative (Negative); PH,Urine 6.5 pH Units (5.0-8.0); Protein,Urine Trace mg/dL (Neg-Trace); Specific Gravity,Urine 1.014 (1.010-1.025); Urobilinogen,Urine Normal (Normal)
[2018-08-29] MEDS: (Combivent Respimat InH) IH SCH ×3 (03:56→10:35)
[2018-08-29 03:58] LABS: Bacteria,Urine Few per hpf (None-Few); Hyaline Casts,Urine None Seen per lpf (None-Few); Squamous Epithelial Cell,Urine Many per lpf (None-Few)
[2018-08-29 03:58] LABS: Basophils % 0.6 %; Eosinophils # 0.4 K/mcL (0.0-0.6); Eosinophils % 5.8 %; Hematocrit 32.9 % (35.3-44.9); Hemoglobin 10.1 g/dL (11.5-15.4); Immature Granulocytes % 0.3 % (0-4); Lymphocytes # 2.4 K/mcL (0.6-4.6); Lymphocytes % 37.2 %; Mean Corpuscular HGB Conc 30.7 g/dL (31.6-35.5); Mean Corpuscular Hemoglobin 26.1 pg (28.0-33.3); Mean Platelet Volume 9.1 fL (9.4-12.4); Monocytes # 0.5 K/mcL (0.0-1.3); Monocytes % 7.2 %; Neutrophils # 3.1 K/mcL (1.6-8.9); Platelet Count 246 K/mcL (140-400); Red Blood Count 3.87 M/mcL (3.82-4.97); Red Cell Distribution Width 16.3 % (11.5-14.5); Segmented Neutrophils % 48.9 %
[2018-08-29 04:18] LABS: BUN/Creatinine Ratio 18 (6-26); Blood Urea Nitrogen 15 mg/dL (8-23); Calcium 9.1 mg/dL (8.6-10.3); Carbon Dioxide 32 mEq/L (23-29); Chloride 98 mEq/L (98-107); Glucose 223 mg/dL (70-105); Osmolality,Calculated 290 (280-300); Potassium 3.9 mEq/L (3.5-5.1); Sodium 136 mEq/L (136-145); eGFR For Non-African Americans > 60 (> 60)
[2018-08-29] MEDS: *HR* Heparin 5,000 UNIT/ML VIAL SQ SCH ×2 (05:44→14:45)
[2018-08-29 07:04] VITALS: BP 160/66
[2018-08-29] MEDS: Insulin LISPRO 300 UNITS/3 ML VIAL SQ SCH ×4 (08:27→11:45)
[2018-08-29] MEDS: Aspirin Enteric Coated 81 MG Tablet PO SCH (08:28)
[2018-08-29] MEDS: Furosemide 20 MG TABLET PO SCH (08:28)
[2018-08-29] MEDS: Celecoxib 200 MG CAPSULE PO SCH (08:28)
[2018-08-29] MEDS: Lisinopril 20 MG TABLET PO SCH (08:28)
[2018-08-29] MEDS: Levalbuterol 1 PUFF INHALER IH PRN (09:42)
[2018-08-29] MEDS: Budesonide/Formoterol 160/4.5 1 PUFF INH IH SCH (09:42)
--- NOTE | 2018-08-29 10:27 | Discharge Summary ---
- NOTES TO OUTPATIENT PROVIDER Notes to Outpatient Provider: Patient presented with somnolence- urine drug screen was positive for benzodiazepines-she was also recently started on baclofen-daughter states she did take Valium at home. We will discontinue both baclofen and Valium. Monitor blood glucose and adjust insulin. Continue with lisinopril and losartan monitor blood pressure at home and keep a log. Had elevated troponin however appears to be around baseline EKG with no ST-T wave abnormalities no chest pain during admission Orders not resulted at time of discharge: Pending orders 08/29/18 06:00 EKG [ECG 12 lead ECG] [ECG] AM 0600 08/30/18 04:00 CBC [Complete Blood Count] [HEME] AM 0400 Chem 7 [Basic Metabolic Panel] AM 0400 08/31/18 04:00 CBC [Complete Blood Count] [HEME] AM 0400 Chem 7 [Basic Metabolic Panel] AM 0400 Date of Encounter: 08/29/18 Time of Encounter: 10: - Discharge Diagnosis (1) COPD (chronic obstructive pulmonary disease) Priority: Secondary Status: Chronic Qualifiers: COPD type: unspecified COPD Qualified Code(s): J44.9 - Chronic obstructive pulmonary disease, unspecified (2) Hypertension Priority: Secondary Status: Chronic Qualifiers: Hypertension type: essential hypertension Qualified Code(s): I10 - Essential (primary) hypertension (3) Diabetes Priority: Secondary Status: Acute Qualifiers: Diabetes mellitus type: type 2 Diabetes mellitus group 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 Gonzales is a 72 year old female past medical history of COPD CAD diabetes fibromyalgia hyperlipidemia to check and CVA patient presented to [facility] facility when she was experiencing somnolence variable blood glucose and blood pressure. Patient does report that she did take a naproxen she did have a drop in glucose 42 and she did have a improvement after receiving oral glucose. [facility] did show an elevated troponin of 0.070 to have a history of arterial bifemoral bypass, she was very groggy drug screen was completed which did show benzodiazepines. She did take Valium as well as baclofen which was recently prescribed to her. She was transferred to [facility] for further workup and evaluation. Troponins were flat and adynamic EKG with no ST-T wave abnormalities no chest pain or shortness of breath. She has been alert and appropriate mutilating in the hallways and in her room. Blood sugars have been human 80s to 190s which had been improved from previous records. Blood pressure has been stable. Did review medications with pharmacy and did find that patient was prescribed Valium over a month ago for 3 days and apparently had some leftover medication and took the medicine. Advised not to take Valium or baclofen. Advised to keep a blood pressure log and to follow-up with primary care provider. Patient did complain of left lower extremity swelling venous duplex completed which was negative for DVT, extremity pink and warm good cap refill there was no swelling or tenderness noted to left groin. Patient did have some loose stool-recently on antibiotics due to UTI GI pain was completed and was negative. Patient is alert and oriented eating and drinking ambulating without difficulty and is hemodynamically stable. She is ready for discharge at this time. Discharge discussed with: patient - Time Spent with Patient Total time spent providing and/or coordinating discharge services: - Discharge Medications Home Medications: Aspirin [Lo-Dose Aspirin EC] 81 mg PO DAILY 04/29/17 [History] Celecoxib [Celebrex] 200 mg PO BID 04/29/17 [History] Insulin ASPART [Novolog Flexpen] 0 unit SQ TIDWM PRN 04/29/17 [History] Ipratropium/Albuterol Sulfate [Combivent Respimat Inhal [place]] 1 puff IH QID 04/29/17 [History] [place]-3S/Dha/Epa/Fish Oil [Fish Oil [place]-3 Softgel] 1 each PO DAILY 04/29/17 [History] Omeprazole [PriLOSEC] 40 mg PO BID 04/29/17 [History] Trazodone HCl 50 mg PO HS 04/29/17 [History] Clopidogrel [Plavix] 75 mg PO DAILY #30 tablet 04/30/17 [Rx] Atorvastatin [Lipitor] 40 mg PO HS 03/24/18 [History] Fluticasone/Salmeterol [Advair 500-50 Diskus] 1 puff IH BID 03/24/18 [History] Amoxicillin/Clavulanate [Augmentin] 875 mg PO BIDWM 08/28/18 [History] Ferrous Sulfate 325 mg PO DAILY 08/28/18 [History] Insulin DETEMIR [Levemir Flextouch] 40 units SQ QPM 08/28/18 [History] Labetalol HCl 200 mg PO Q12H 08/28/18 [History] Levalbuterol Neb [Xopenex Neb] 1.25 mg IH TID 08/28/18 [History] Lisinopril [Zestril] 10 mg PO DAILY 08/28/18 [History] Nicotine [Nicotine Patch] 21 mg TD DAILY 08/28/18 [History] hydrOXYzine pamoate [HydrOXYzine Pamoate] 25 mg PO HS PRN 08/28/18 [History] Furosemide [Lasix] 20 mg PO DAILY tablet 08/29/18 [Rx] Allergies/Adverse Reactions: Allergy/AdvReac Type Severity Reaction Status Date / Time albuterol AdvReac Chest Pain Verified 08/15/18 12:19 ciprofloxacin [From Cipro] AdvReac Vomiting Verified 08/15/18 12:19 doxycycline AdvReac Nausea Verified 08/15/18 12:19 pregabalin [From Lyrica] AdvReac Fatigued Verified 08/15/18 12:19 Date of admission: 08/27/18 21:55 Primary care physician: PCP NONE Discharging clinician: Polly Washington Anticipated date of discharge: 08/29/18 - Constitutional Vitals: Temp Pulse Resp BP Pulse Ox 97.9 F 71 16 160/66 92 08/29/18 07:03 08/29/18 07:03 08/29/18 09:44 08/29/18 07:03 08/29/18 09:44 General appearance: Present: A&O X 3 Exam: GENERAL: Pleasant elderly female lying in bed comfortably. She does not appear to be in acute distress. Audible wheezes present while patient is conversant. HEENT: Atraumatic and normocephalic. Nasal canula in place. Oral mucosa moist. CARDIOVASCULAR: Regular rate and rhythm. S1 and S2 present. 3/6 systolic murmur present. RESPIRATORY: Bilateral expiratory wheeze present. Equal air movement bilaterally. No accessory muscle use. GASTROINTESTINAL: Midline and bilateral groin surgical incisions present that appear to be healing well. Abdomen is soft and nondistended. Palpable mass present beneath bilateral groin incisions, with slightly increased fullness on the left. No increase in size increased abdominal pressure. EXTREMITIES: Left lower extremity appears slightly edematous and erythematous as compared to the right, with increased warmth present. Slight fullness in left popliteal fossa. Patient is tender to palpation along left calf. NEUROLOGIC: A&O x3. Patient answers questions appropriately and is cooperative with exam. - Head Head exam: Present: atraumatic, normocephalic - Patient Status Disposition: Home, Self-Care Condition: Good Functional capacity at discharge: independent ambulation - Discharge Instructions Instructions: Heart Failure (DC), Coronary Artery Disease (DC), Chest Pain (DC), Diabetes Mellitus Type 2 in Adults (DC), Chronic Obstructive Pulmonary Disease (DC), Chronic Hypertension (DC), Anemia (GEN), Pneumonia (DC) Follow Up With: Lisa Emmanuel LEARNING AND DEVELOPMENT ANALYST [Advanced Practice Nurse] - 09/03/18 1:00 pm Additional Instructions: Discontinue taking Valium Discontinue taking Baclofen Take blood pressure twice a day. Once in the morning and once in the evening and keep a log to take to your follow up appointment with Lisa Emmanuel. - Diet and Activity Activity: increase activity as tolerated Diet: advance to your usual diet
--- NOTE | 2018-08-29 19:32 | Physician Discharge Referral ---
Home Health/Hosp Referral Info Transfer to: Home Health Attending Provider: Ger Washington Provider in Charge Post Discharge: PCP - Diagnosis (1) COPD (chronic obstructive pulmonary disease) Priority: Secondary Status: Chronic (2) Hypertension Priority: Secondary Status: Chronic (3) Diabetes Priority: Secondary Status: Acute (4) Elevated troponin Priority: Secondary Status: Acute (5) Somnolence Priority: Primary Status: Acute (6) Left leg swelling Priority: Secondary Status: Acute - Respiratory Orders Smoking Cessation: Smoking cessation has been advised. For more information, call the [place] Tobacco Quit Line at 2-389-CAVB-NOW. - Diet/Nutrition Diet/Nutrition Orders: Regular - Activity Activity Orders: Up ad rocky - Services Needed Following services are medically necessary services: Nursing, Physical Therapy, Occupational Therapy - Transfer Medications Home Medications: Aspirin [Lo-Dose Aspirin EC] 81 mg PO DAILY 04/29/17 [History] Celecoxib [Celebrex] 200 mg PO BID 04/29/17 [History] Insulin ASPART [Novolog Flexpen] 0 unit SQ TIDWM PRN 04/29/17 [History] Ipratropium/Albuterol Sulfate [Combivent Respimat Inhal [place]] 1 puff IH QID 04/29/17 [History] [place]-3S/Dha/Epa/Fish Oil [Fish Oil [place]-3 Softgel] 1 each PO DAILY 04/29/17 [History] Omeprazole [PriLOSEC] 40 mg PO BID 04/29/17 [History] Trazodone HCl 50 mg PO HS 04/29/17 [History] Clopidogrel [Plavix] 75 mg PO DAILY #30 tablet 04/30/17 [Rx] Atorvastatin [Lipitor] 40 mg PO HS 03/24/18 [History] Fluticasone/Salmeterol [Advair 500-50 Diskus] 1 puff IH BID 03/24/18 [History] Amoxicillin/Clavulanate [Augmentin] 875 mg PO BIDWM 08/28/18 [History] Ferrous Sulfate 325 mg PO DAILY 08/28/18 [History] Insulin DETEMIR [Levemir Flextouch] 40 units SQ QPM 08/28/18 [History] Labetalol HCl 200 mg PO Q12H 08/28/18 [History] Levalbuterol Neb [Xopenex Neb] 1.25 mg IH TID 08/28/18 [History] Lisinopril [Zestril] 10 mg PO DAILY 08/28/18 [History] Nicotine [Nicotine Patch] 21 mg TD DAILY 08/28/18 [History] hydrOXYzine pamoate [HydrOXYzine Pamoate] 25 mg PO HS PRN 08/28/18 [History] Furosemide [Lasix] 20 mg PO DAILY tablet 08/29/18 [Rx] Allergies/Adverse Reactions: Allergy/AdvReac Type Severity Reaction Status Date / Time albuterol AdvReac Chest Pain Verified 08/15/18 12:19 ciprofloxacin [From Cipro] AdvReac Vomiting Verified 08/15/18 12:19 doxycycline AdvReac Nausea Verified 08/15/18 12:19 pregabalin [From Lyrica] AdvReac Fatigued Verified 08/15/18 12:19 Certification: Further, I certify that my clinical findings support that this patient is homebound (i.e. absences from home require considerable and taxing effort and are for medical reasons or scientologist services or infrequently or short duration when for other reasons) because: Homebound Reason: Severity of cardiac or pulmonary status limits activity tolerance Attestation: My signature below is to certify that this patient is under my care and that I, or nurse practitioner, or a physician's bus assistant working with me, has a [id number] encounter with this patient.
--- NOTE | 2018-09-02 14:09 | Electrocardiograph Report ---
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
== END 2018-08-29 15:36 | disposition home or self-care (01) ==
LOC: 3BNU
PROVIDERS: ADMIT Internal Medicine; ATTEND Internal Medicine

== ENCOUNTER 2019-08-12 06:05 | Inpatient (IN) ==
[2019-08-12] MEDS ORDERED: CeFAZolin Syr 2,000MG/20 ML 2,000 MG/20 ML SYRINGE IVPB ONE (06:22)
[2019-08-12] MEDS ORDERED: Ringers Solution, Lactated 1,000 ML IVC SCH (06:30)
[2019-08-12] MEDS ORDERED: Ondansetron 4 MG/2 ML VIAL ONE ×2 (07:05→11:20)
[2019-08-12] MEDS ORDERED: Lidocaine -MPF 2% 2 ML VIAL ONE (07:05)
[2019-08-12] MEDS ORDERED: *HR* FentaNYL (PF) 100 MCG/2 ML VIAL ONE (07:05)
[2019-08-12] MEDS ORDERED: Dexamethasone 4 MG/ML VIAL ONE (07:05)
[2019-08-12] MEDS ORDERED: Lidocaine -MPF 4% 5 ML AMPUL ONE (07:05)
[2019-08-12] MEDS ORDERED: *HR* Succinylcholine 200 MG/10 ML VIAL IVP ONE (07:05)
[2019-08-12] MEDS ORDERED: *HR* Propofol 200 MG/20 ML VIAL IVP ONE (07:06)
[2019-08-12] MEDS ORDERED: Levalbuterol Neb 1.25 MG/3 ML IH ONE ×2 (07:10→08:23)
[2019-08-12] MEDS ORDERED: Famotidine 20 MG/2 ML VIAL IVP ONE (07:24)
[2019-08-12] MEDS ORDERED: Acetaminophen IV 1,000 MG/100 ML INFUS..BTL IVPB ONE (07:24)
[2019-08-12] MEDS ORDERED: Aspirin 81 MG TAB.CHEW PO ONE (07:25)
[2019-08-12] MEDS ORDERED: *HR* Vasopressin 20 UNIT/ML VIAL ONE (07:25)
[2019-08-12] MEDS ORDERED: *HR* Remifentanil 1 MG VIAL IVP ONE ×2 (07:29→11:14)
[2019-08-12] MEDS ORDERED: *HR* Phenylephrine 10 MG/ML VIAL ONE (07:33)
[2019-08-12] MEDS ORDERED: *HR* Midazolam HCl 2 MG/2 ML VIAL ONE (07:38)
[2019-08-12] MEDS ORDERED: Heparin 1,000 UNITS/500 mL 500 ML ONE (07:50)
[2019-08-12] MEDS ORDERED: Bacitracin 50,000 UNIT, Polymyxin B Sulfate 500,000 UNIT, Sodium Chloride IRRigation 1,... IR ONE (08:15)
[2019-08-12] MEDS ORDERED: *HR* Labetalol 20 MG/4 ML SYRINGE IVP PRN (08:21)
[2019-08-12] MEDS ORDERED: Ondansetron 4 MG/2 ML VIAL IVP ONE (08:21)
[2019-08-12] MEDS ORDERED: *HR* HYDROmorphone (PF) 1 MG/ML SYRINGE IVP PRN (08:21)
[2019-08-12] MEDS ORDERED: *HR* Promethazine 25 MG/ML VIAL IVP PRN (08:21)
[2019-08-12] MEDS ORDERED: *HR* OxyCODONE Immed Rel 5 MG TABLET PO PRN (08:21)
[2019-08-12] MEDS ORDERED: EPHEDrine 50 MG/ML VIAL ONE (08:22)
[2019-08-12] MEDS ORDERED: *HR* HYDROMORPHONE 2 MG/ML VIAL ONE (12:53)
[2019-08-12] MEDS ORDERED: *HR* Labetalol 20 MG/4 ML SYRINGE IVP ONE (13:14)
[2019-08-12] MEDS ORDERED: Ondansetron 4 MG/2 ML VIAL IVP PRN (15:08)
[2019-08-12] MEDS ORDERED: Naloxone 0.4 MG/ML INJ IVP PRN (15:08)
[2019-08-12] MEDS ORDERED: Acetaminophen 325 MG TABLET PO PRN (15:08)
[2019-08-12] MEDS: *HR* OxyCODONE Immed Rel 5 MG TABLET PO PRN ×2 (16:54→21:13)
[2019-08-12] MEDS ORDERED: NON-FORMULARY MEDICATION 1 EACH EACH (Ipratropium/Albuterol Sulfate [Combivent Respimat In IH SCH (17:00)
[2019-08-12] MEDS: Ringers Solution, Lactated 1,000 ML IVC SCH (17:02)
[2019-08-12] MEDS ORDERED: Levalbuterol Neb 1.25 MG/3 ML IH SCH (18:00)
[2019-08-12] MEDS: *HR* HYDROcodone/Acet 5/325 mg TABLET PO PRN (19:04)
[2019-08-12] MEDS: Budesonide/Formoterol 160/4.5 1 PUFF INH IH SCH (19:48)
[2019-08-12] MEDS: Celecoxib 200 MG CAPSULE PO SCH (20:35)
[2019-08-12] MEDS: Levalbuterol Neb 1.25 MG/3 ML IH SCH (21:48)
[2019-08-13] MEDS: *HR* OxyCODONE Immed Rel 5 MG TABLET PO PRN ×3 (02:32→19:58)
[2019-08-13] MEDS: Levalbuterol Neb 1.25 MG/3 ML IH SCH ×4 (03:50→21:54)
[2019-08-13 05:48] LABS: Basophils % 0.3 %; Eosinophils # 0.1 K/mcL (0.0-0.6); Eosinophils % 0.8 %; Hematocrit 29.8 % (35.3-44.9); Hemoglobin 9.8 g/dL (11.5-15.4); Immature Granulocytes % 0.5 % (0-4); Lymphocytes % 10.6 %; Mean Corpuscular HGB Conc 32.9 g/dL (31.6-35.5); Mean Corpuscular Hemoglobin 30.4 pg (28.0-33.3); Mean Corpuscular Volume 92.5 fL (83.0-100.0); Monocytes # 0.7 K/mcL (0.0-1.3); Monocytes % 6.7 %; Neutrophils # 7.9 K/mcL (1.6-8.9); Platelet Count 161 K/mcL (140-400); Red Blood Count 3.22 M/mcL (3.82-4.97); Red Cell Distribution Width 13.4 % (11.5-14.5); Segmented Neutrophils % 81.1 %; White Blood Count 9.8 K/mcL (4.3-11.1)
[2019-08-13 06:00] LABS: BUN/Creatinine Ratio 29 (6-26); Blood Urea Nitrogen 16 mg/dL (8-23); Carbon Dioxide 27 mEq/L (23-29); Chloride 99 mEq/L (98-107); Glucose 232 mg/dL (70-105); Osmolality,Calculated 289 (280-300); Potassium 4.2 mEq/L (3.5-5.1); Sodium 135 mEq/L (136-145); eGFR For African Americans > 60 (> 60); eGFR For Non-African Americans > 60 (> 60)
[2019-08-13] MEDS: Ringers Solution, Lactated 1,000 ML IVC SCH ×2 (07:03→11:22)
[2019-08-13] MEDS ORDERED: Nicotine 21 MG PATCH.TD24 TD SCH (09:00)
[2019-08-13] MEDS: Insulin DETEMIR 100 UNIT/ML X5UNITS SQ SCH ×2 (09:24→22:35)
[2019-08-13] MEDS: Aspirin Enteric Coated 81 MG Tablet PO SCH (09:28)
[2019-08-13] MEDS: Celecoxib 200 MG CAPSULE PO SCH ×2 (09:28→19:59)
[2019-08-13] MEDS: Budesonide/Formoterol 160/4.5 1 PUFF INH IH SCH ×2 (10:57→21:54)
[2019-08-13] MEDS ORDERED: D5% in Water 1,000 ML IVC PRN (11:03)
[2019-08-13] MEDS ORDERED: *HR* Dextrose 50 % in Water (Syg) 50 ML SYRINGE IVP PRN (11:03)
[2019-08-13] MEDS ORDERED: Dextrose Gel 15 GM/37.5 ML TUBE PO PRN ×2 (11:03)
[2019-08-13] MEDS: Insulin LISPRO 300 UNITS/3 ML VIAL SQ SCH ×2 (11:52→17:18)
[2019-08-13] MEDS ORDERED: Acetaminophen IV 1,000 MG/100 ML INFUS..BTL IVPB ONE (12:08)
[2019-08-14] MEDS: *HR* OxyCODONE Immed Rel 5 MG TABLET PO PRN ×4 (01:16→20:08)
[2019-08-14] MEDS: Levalbuterol Neb 1.25 MG/3 ML IH SCH ×4 (03:57→22:45)
[2019-08-14] MEDS: Ringers Solution, Lactated 1,000 ML IVC SCH (07:37)
[2019-08-14] MEDS: Aspirin Enteric Coated 81 MG Tablet PO SCH (08:45)
[2019-08-14] MEDS: Celecoxib 200 MG CAPSULE PO SCH (08:45)
[2019-08-14] MEDS: Insulin LISPRO 300 UNITS/3 ML VIAL SQ SCH ×3 (08:45→17:40)
[2019-08-14] MEDS: Budesonide/Formoterol 160/4.5 1 PUFF INH IH SCH ×2 (09:53→22:45)
[2019-08-14] MEDS: Insulin DETEMIR 100 UNIT/ML X5UNITS SQ SCH (20:23)
[2019-08-14] MEDS: *HR* HYDROcodone/Acet 5/325 mg TABLET PO PRN (23:11)
[2019-08-15] MEDS: *HR* OxyCODONE Immed Rel 5 MG TABLET PO PRN ×4 (02:14→20:58)
[2019-08-15] MEDS: Levalbuterol Neb 1.25 MG/3 ML IH SCH ×4 (03:46→22:30)
[2019-08-15] MEDS: Aspirin Enteric Coated 81 MG Tablet PO SCH (08:49)
[2019-08-15] MEDS: Insulin LISPRO 300 UNITS/3 ML VIAL SQ SCH ×3 (08:58→16:33)
[2019-08-15] MEDS: Budesonide/Formoterol 160/4.5 1 PUFF INH IH SCH ×2 (11:16→22:25)
[2019-08-15 19:25] VITALS: BP 144/57
[2019-08-15] MEDS ORDERED: FLU Vac QV 19-20 (6Month+)/PF 0.5 ML SYRINGE IM ONE (20:24)
[2019-08-15] MEDS: Insulin DETEMIR 100 UNIT/ML X5UNITS SQ SCH (20:59)
== END 2019-08-15 22:45 | DRG 457 ==
LOC: SAMDAY 06:05 → 3NENU 15:54
PROVIDERS: ADMIT Orthopaedic Surgery Orthopaedic Surgery of the Spine; ATTEND Orthopaedic Surgery Orthopaedic Surgery of the Spine

== ENCOUNTER 2019-10-10 04:57 | Inpatient (IN) ==
[2019-10-10] MEDS ORDERED: Naloxone 0.4 MG/ML INJ IVP PRN (07:18)
[2019-10-10] MEDS ORDERED: Ondansetron 4 MG/2 ML VIAL IVP PRN (07:18)
[2019-10-10 07:56] LABS: Hemoglobin 9.3 g/dL (11.5-15.4)
[2019-10-10] MEDS ORDERED: *HR* Dextrose 50 % in Water (Syg) 50 ML SYRINGE IVP PRN (08:26)
[2019-10-10] MEDS ORDERED: D5% in Water 1,000 ML IVC PRN (08:26)
[2019-10-10] MEDS ORDERED: Dextrose Gel 15 GM/37.5 ML TUBE PO PRN ×2 (08:26)
[2019-10-10] MEDS: D5% in 0.45% NACL w KCl 20 MEQ/1,000 ML MLS IVC SCH ×2 (10:07→23:45)
[2019-10-10] MEDS: Pantoprazole 40 MG VIAL IVP SCH ×2 (10:08→18:17)
[2019-10-10] MEDS: Budesonide/Formoterol 160/4.5 1 PUFF INH IH SCH ×2 (10:40→20:49)
[2019-10-10] MEDS: Insulin LISPRO 300 UNITS/3 ML VIAL SQ SCH ×2 (13:27→18:14)
[2019-10-10 14:32] LABS: Hematocrit 25.1 % (35.3-44.9); Hemoglobin 8.6 g/dL (11.5-15.4)
[2019-10-10] MEDS ORDERED: Insulin DETEMIR 100 UNIT/ML X5UNITS SQ SCH (21:00)
[2019-10-10 22:00] LABS: Hematocrit 25.2 % (35.3-44.9); Hemoglobin 8.4 g/dL (11.5-15.4)
[2019-10-11] MEDS: Insulin LISPRO 300 UNITS/3 ML VIAL SQ SCH ×5 (00:09→23:03)
[2019-10-11] MEDS ORDERED: Melatonin 3 MG TABLET PO ONE (03:34)
[2019-10-11 05:24] LABS: Basophils # 0.1 K/mcL (0.0-0.2); Basophils % 0.9 %; Eosinophils # 0.4 K/mcL (0.0-0.6); Eosinophils % 7.5 %; Hematocrit 27.5 % (35.3-44.9); Immature Granulocytes % 0.5 % (0-4); Lymphocytes # 1.3 K/mcL (0.6-4.6); Lymphocytes % 22.3 %; Mean Corpuscular HGB Conc 32.7 g/dL (31.6-35.5); Mean Corpuscular Hemoglobin 29.8 pg (28.0-33.3); Mean Corpuscular Volume 91.1 fL (83.0-100.0); Mean Platelet Volume 8.5 fL (9.4-12.4); Monocytes # 0.5 K/mcL (0.0-1.3); Monocytes % 8.6 %; Neutrophils # 3.4 K/mcL (1.6-8.9); Platelet Count 396 K/mcL (140-400); Red Blood Count 3.02 M/mcL (3.82-4.97); Red Cell Distribution Width 15.3 % (11.5-14.5); Segmented Neutrophils % 60.2 %; White Blood Count 5.6 K/mcL (4.3-11.1)
[2019-10-11 05:42] LABS: BUN/Creatinine Ratio 22 (6-26); Blood Urea Nitrogen 8 mg/dL (8-23); Carbon Dioxide 26 mEq/L (23-29); Chloride 108 mEq/L (98-107); Glucose 109 mg/dL (70-105); Magnesium 1.8 mg/dL (1.6-2.6); Osmolality,Calculated 289 (280-300); Potassium 3.8 mEq/L (3.5-5.1); Sodium 140 mEq/L (136-145); eGFR For African Americans > 60 (> 60); eGFR For Non-African Americans > 60 (> 60)
[2019-10-11] MEDS: Pantoprazole 40 MG VIAL IVP SCH ×2 (05:53→17:53)
[2019-10-11] MEDS: Budesonide/Formoterol 160/4.5 1 PUFF INH IH SCH ×2 (07:21→20:06)
[2019-10-11] MEDS ORDERED: *HR* Promethazine 25 MG/ML VIAL IVP PRN (09:48)
[2019-10-11] MEDS ORDERED: *HR* Labetalol 20 MG/4 ML SYRINGE IVP PRN (09:48)
[2019-10-11] MEDS ORDERED: Ondansetron 4 MG/2 ML VIAL IVP ONE (09:48)
[2019-10-11] MEDS ORDERED: Lidocaine -MPF 2% 2 ML VIAL ONE (10:31)
[2019-10-11] MEDS ORDERED: Propofol 500 MG/50 ML INFUS..BTL ONE (10:32)
[2019-10-11] MEDS ORDERED: *HR* Labetalol 20 MG/4 ML SYRINGE IVP ONE (11:29)
[2019-10-11] MEDS ORDERED: D5% in Water 1,000 ML IVC PRN (13:15)
[2019-10-11] MEDS ORDERED: Naloxone 0.4 MG/ML INJ IVP PRN (13:15)
[2019-10-11] MEDS ORDERED: Dextrose Gel 15 GM/37.5 ML TUBE PO PRN ×2 (13:15)
[2019-10-11] MEDS ORDERED: *HR* Dextrose 50 % in Water (Syg) 50 ML SYRINGE IVP PRN (13:15)
[2019-10-11] MEDS ORDERED: D5% in 0.45% NACL w KCl 20 MEQ/1,000 ML MLS IVC ONE (13:18)
[2019-10-11] MEDS ORDERED: Insulin LISPRO 300 UNITS/3 ML VIAL SQ ONE (15:55)
[2019-10-11] MEDS: D5% in 0.45% NACL w KCl 20 MEQ/1,000 ML MLS IVC SCH (17:51)
[2019-10-11] MEDS: Insulin DETEMIR 100 UNIT/ML X5UNITS SQ SCH (20:24)
[2019-10-12] MEDS: D5% in 0.45% NACL w KCl 20 MEQ/1,000 ML MLS IVC SCH ×2 (00:40→02:53)
[2019-10-12 00:57] LABS: Hematocrit 25.2 % (35.3-44.9); Mean Corpuscular HGB Conc 31.7 g/dL (31.6-35.5); Mean Corpuscular Hemoglobin 30.2 pg (28.0-33.3); Mean Corpuscular Volume 95.1 fL (83.0-100.0); Mean Platelet Volume 8.7 fL (9.4-12.4); Platelet Count 356 K/mcL (140-400); Red Blood Count 2.65 M/mcL (3.82-4.97); Red Cell Distribution Width 14.9 % (11.5-14.5); White Blood Count 5.2 K/mcL (4.3-11.1)
[2019-10-12 01:15] LABS: BUN/Creatinine Ratio 13 (6-26); Blood Urea Nitrogen 7 mg/dL (8-23); Calcium 8.1 mg/dL (8.6-10.3); Carbon Dioxide 26 mEq/L (23-29); Chloride 104 mEq/L (98-107); Glucose 295 mg/dL (70-105); Osmolality,Calculated 291 (280-300); Potassium 4.4 mEq/L (3.5-5.1); Sodium 136 mEq/L (136-145); eGFR For African Americans > 60 (> 60); eGFR For Non-African Americans > 60 (> 60)
[2019-10-12] MEDS: Insulin LISPRO 300 UNITS/3 ML VIAL SQ SCH ×3 (05:10→17:41)
[2019-10-12] MEDS: Pantoprazole 40 MG VIAL IVP SCH ×2 (05:11→17:45)
[2019-10-12] MEDS: Budesonide/Formoterol 160/4.5 1 PUFF INH IH SCH ×2 (08:06→22:52)
[2019-10-12] MEDS: Aspirin 81 MG TAB.CHEW PO SCH (09:15)
[2019-10-12] MEDS: Insulin DETEMIR 100 UNIT/ML X5UNITS SQ SCH (20:11)
[2019-10-12] MEDS ORDERED: Insulin LISPRO 300 UNITS/3 ML VIAL SQ SCH (21:00)
[2019-10-12] MEDS ORDERED: Ipratropium Neb 0.5 MG NEBULIZER IH PRN (22:58)
[2019-10-13] MEDS: Pantoprazole 40 MG VIAL IVP SCH (06:01)
[2019-10-13 06:41] LABS: Hematocrit 29.4 % (35.3-44.9); Hemoglobin 9.3 g/dL (11.5-15.4); Mean Corpuscular HGB Conc 31.6 g/dL (31.6-35.5); Mean Corpuscular Hemoglobin 30.1 pg (28.0-33.3); Mean Corpuscular Volume 95.1 fL (83.0-100.0); Mean Platelet Volume 8.4 fL (9.4-12.4); Platelet Count 351 K/mcL (140-400); Red Blood Count 3.09 M/mcL (3.82-4.97); Red Cell Distribution Width 14.7 % (11.5-14.5); White Blood Count 5.7 K/mcL (4.3-11.1)
[2019-10-13 07:03] LABS: BUN/Creatinine Ratio 13 (6-26); Blood Urea Nitrogen 7 mg/dL (8-23); Calcium 8.5 mg/dL (8.6-10.3); Carbon Dioxide 32 mEq/L (23-29); Chloride 101 mEq/L (98-107); Glucose 155 mg/dL (70-105); Osmolality,Calculated 295 (280-300); Potassium 4.3 mEq/L (3.5-5.1); Sodium 142 mEq/L (136-145); eGFR For African Americans > 60 (> 60); eGFR For Non-African Americans > 60 (> 60)
[2019-10-13] MEDS: Budesonide/Formoterol 160/4.5 1 PUFF INH IH SCH (07:54)
[2019-10-13] MEDS: Insulin LISPRO 300 UNITS/3 ML VIAL SQ SCH ×2 (08:13→12:20)
[2019-10-13] MEDS: Aspirin 81 MG TAB.CHEW PO SCH (08:14)
[2019-10-13] MEDS ORDERED: Furosemide 20 MG TABLET PO PRN (09:36)
[2019-10-13] MEDS ORDERED: carvediloL 25 MG TABLET PO SCH (09:37)
[2019-10-13 11:20] VITALS: BP 136/57
== END 2019-10-13 14:53 | DRG 378 ==
LOC: 3ANU → SUATTDRO 06:15
PROVIDERS: ADMIT Internal Medicine; ATTEND Internal Medicine
PROC: ENDOCBX (2019-10-11 09:30)